=== PATIENT | male | born 1965 | race Caucasian/White ===

== ENCOUNTER → 2024-11-26 13:01 | Outpatient (BNVA) | payer OTHER, SELFPAY | PROVIDERS: PCP Physician Assistant; Visit Provider Physician Assistant | DX: I10 Essential (primary) hypertension (principal); E66.9 Obesity, unspecified; F41.1 Generalized anxiety disorder; R41.840 Attention and concentration deficit; F33.0 Major depressive disorder, recurrent, mild; R35.1 Nocturia; E66.01 Morbid (severe) obesity due to excess calories; M54.41 Lumbago with sciatica, right side; M54.42 Lumbago with sciatica, left side; G89.29 Other chronic pain; Z86.718 Personal history of other venous thrombosis and embolism; Z87.891 Personal history of nicotine dependence; Z68.35 Body mass index [BMI] 35.0-35.9, adult | CPT/HCPCS: 96127; 99202 ==

== ENCOUNTER 2025-01-08 10:00 | Outpatient (REF) | payer OTHER, SELFPAY ==
[2025-01-08 11:27] LABS: MANUAL DIFF FLAG NO
[2025-01-08 11:44] LABS: Basophils Absolute Auto 0.1 X10*3/uL (0.0-0.2); Basophils Percent Auto 0.9 % (0-2); Eosinophils Absolute Auto 0.3 X10*3/uL (0.0-0.4); Eosinophils Percent Auto 4.1 % (0-4); Hematocrit 43.5 % (42.0-52.0); Hemoglobin 14.5 g/dl (14.0-18.0); Imm Gran Abs Auto 0.03 X10*3/uL (0.00-0.03); Imm Gran Pct Auto 0.4 % (0.0-0.4); Lymphocytes Absolute Auto 2.8 X10*3/uL (1.2-4.9); Lymphocytes Percent Auto 35.7 % (20-40); Mean Corpuscular HGB Conc 33.3 g/dl (31.0-36.0); Mean Corpuscular Hemoglobin 28.3 pg (27.0-33.0); Mean Corpuscular Volume 84.8 fL (80.0-98.0); Mean Platelet Volume 9.9 fL (9.4-12.4); Monocytes Absolute Auto 0.6 X10*3/uL (0.1-1.2); Monocytes Percent Auto 7.4 % (2-11); Neutrophils Absolute Auto 4.1 x10*3/uL (2.0-8.3); Neutrophils Percent Auto 51.5 % (45-73); Platelet Count 298 X10*3/uL (160-400); Red Blood Count 5.13 X10*6/uL (4.60-5.80); Red Cell Distribution Width 14.3 % (11.0-16.0); White Blood Count 7.9 X10*3/uL (4.8-10.8)
[2025-01-08 11:46] LABS: Estimated Average Glucose 120 mg/dL; Hemoglobin A1c % 5.8 % (<6.0)
--- OUTSIDE RECORDS SUMMARY | 2025-01-08 12:22 | XMS_ITS | Patient Health Record ---
Author Organization [facility] Address [address] [address] Care Team Providers Care Sales Service Professional Name Role Phone Mckenzie Luz Primary Care Provider Unavailabl e BEN MORGAN Unavailable [phone] Allergies No Known Allergies Reason For Referral Reason B/L feet pain Diagnosis 1 Right foot pain (M79 .671) Diagnosis 2 Left foot pain (M79. 672) Diagnosis 3 Gastrocnemius equinu s of right lower extremity (M62.461) Diagnosis 4 Gastrocnemius equinu s of left lower extremity (M62.462) Referring Provider First Name Mckenzie Referring Provider Last Name Natty Referred Organization [facility] Referred Provider BEN MORGAN Referred Address [address] [place] [phone], Referred Provider Specialty Podiatry Referral Priority Routine Reason B/L feet pain Diagnosis 1 Left foot pain (M79. 672) Diagnosis 2 Right foot pain (M79 .671) Referring Provider First Name Mckenzie Referring Provider Last Name Natty Referred Organization [facility] Referred Provider BEN MORGAN Referred Address [address] [place] [phone], Referred Provider Specialty Podiatry Referral Priority Routine Medications Medication SIG (Take, Route, Frequency, Duration) Notes Start Date End Date Status traMADol HCl 100 MG 1 tablet as needed Orally every 6 hrs Active Tamsulosin HCl 0.4 MG 1 capsule Orally O nce a day Active Wegovy 0.25 MG/0.5ML 0.5 mL Subcutaneous Active Cymbalta 60 MG 1 capsule Orally Onc e a day Active Azithromycin 250 MG as directed Orally Not-Taking Lisinopril-hydroCHLOROth iazide 20-12.5 MG 1 tablet Orally Once a day Active Doxycycline Hyclate 100 MG 1 capsule Orally Once a day Not-Taking Percocet 5-325 MG 1 tablet as needed Orally every 6 hrs Not-Taking Problems Problem Type SNOMED Code ICD Code Onset Dates Problem Status W/U Status Risk Notes Problem [id number] Gastrocnemius equinus of right lower extremity (M62.461) Active confirmed Problem [id number] Gastrocnemius equinus of left lower extremity (M62.462) Active confirmed Vital Signs Temperature 97.2 degrees Fahrenheit 07/07/2024 Blood pressure diastolic 70 mm Hg 07/07/2024 Height 5ft 6.5in in 07/07/2024 Blood pressure systolic 120 mm Hg 07/07/2024 Weight 213.7 lbs 07/07/2024 BMI 33.97 kg/m2 07/07/2024 Encounters Encounter Location Date Provider Diagnosis [facility] [address] [facility] [address] [place] [address] 07/07/2024 BEN MORGAN Left foot pain M79.6 72 ; Right foot pain M79.671 ; Gastrocnemius equinus of left lower extremity M62.462 and Gastrocnemius equinus of right lower extremity M62.461 Assessments Encounter Date Diagnosis (ICD Code) Assessment Notes Treatment Notes Treatment Clinical Notes Section Notes 07/07/2024 Right foot pain (ICD-10 - M79.671) 07/07/2024 Left foot pain (ICD-10 - M79.672) Patient examined and evaluated. Past medical history reviewed. He has had chronic bilateral ankle and foot pain. Bilateral weightbearing radiographs taken of the left and right foot. No significant degenerative changes or acute bony pathology. I discussed with him that the chronic pain is a combination of his job requirement of standing on hard surfaces and lower extremity tightness. I advised stiffer soled shoe gear and gave him recs on inserts. I also suggested calf stretching twice daily. I advised PT could be beneficial to help with the tightness, but he wished to avoid this for now. He will start stretching on his own and let me know in the future if he wants to do PT. He can otherwise follow back as needed. 07/07/2024 Gastrocnemius equinus of left lower extremity (ICD-10 - M62.462) 07/07/2024 Gastrocnemius equinus of right lower extremity (ICD-10 - M62.461) Plan Of Treatment No Information Insurance Providers Payer Name Payer Address Payer Phone Subscriber Number Group Number Insured Name Patient Relationship to Insured Coverage Start Date Coverage End Date [facility] [address] [address] [place] [address] [phone] [id number] Marco Alcantara Self - patient is the insured Medical (General) History Medical History History ICD Code Hyperlipidemia hypertension osteoarthritis of right knee Covid-19 2019 Benign Prostate Hyperplasia Obesity Anxiety Chronic pain Surgical History Surgery Date(Month/Year) colonoscopy 2016 ACL repair Partial knee surgery 2020
--- OUTSIDE RECORDS SUMMARY | 2025-01-08 12:22 | XMS_ITS | Encounter Summary ---
Author Organization [facility] Address [address] [place] [address] Care Team Providers Care Medical Billing Manager Name Role Phone Pcp, No Primary Care Provider UnavailAnel Liu LCSW Unavailable [phone] Marco Conroy MD Unavailable [phone] Marco Correa MD Unavailable [phone] Encounter Details Date Type Department Care Team (Late st Contact Info) Description 09/08/2021 Erroneous Encounter [facility] [address] [place] [address] Jaun Asif Jr., MD [address] [place], [place] [id number] Social History Tobacco Use Types Packs/Day Years Used Date Smoking Tobacco: Never Assessed Sex and Gender Information Value Date Recorded Sex Assigned at Not on file Gender Identity Not on file Sexual Orientation Not on file documented as of this encounter Plan of Treatment Not on file documented as of this encounter Goals Goal Patient Goal Type Associated Problems Recent Progress Patient-Stated? Author Reduce ADHD behavioral interference in daily life. Care Plan PTDO-Attention- Deficit/Hyperac tivity Disorder (ADHD) No Anel Orozco LCSW [phone] Take prescribed medications responsibly at times ordered by the physician. Care Plan PTDO-Attention- Deficit/Hyperac tivity Disorder (ADHD) No Anel Orozco LCSW improve lack of focus, feeling like I don't fit in and being uncomfortable, decrease anxiety Care Plan PTDO-Attention- Deficit/Hyperac tivity Disorder (ADHD) No Anel Orozco LCSW MARS GOAL 11 - I can make changes in my life Care Plan PTDO-Attention- Deficit/Hyperac tivity Disorder (ADHD) No Anel Orozco LCSW Note: Pt. will report at least a 1 point increase on the MARS-12 outcome measure item (#11) I can make changes in my life even though I have a behavioral health issue on the next administration of the measure. Pt. will identify at least one change that they can try and make in their life and report progress on that change in future appointments. Frequency Duration Modality documented as of this encounter Visit Diagnoses Not on filedocumented in this encounter Additional Health Concerns Active Problems Noted Date Diagnosed Date QWCA-Angwcincf-Lvgkfdn/Hyperactivity Disorder (A DHD) 03/10/2021 documented as of this encounter Care Teams Medical Billing Manager Relationship Specialty Start Date End Date Pcp, Padmini PCP - General General Medicine 02/11/21 Anel Orozco LCSW [address] [place] [address] Correctional Sergeant Social Work 03/10/21 Marco Conroy MD [address] [place] [address] Psychiatry, General 03/15/21 Marco Correa MD [address] [place] [address] Psychiatry, General 04/22/21 documented as of this encounter
--- OUTSIDE RECORDS SUMMARY | 2025-01-08 12:23 | XMS_ITS ---
Author Organization [facility] Address [address] [address] Care Team Providers Care Construction Stonemason Name Role Phone Mckenzie Luz Primary Care Provider YUE Ding Unavailable [phone] Allergies No Known Allergies REASON FOR VISIT b/l Ankle and foot pain, Questioning if he has a sprain [...] as needed Orally every 6 hrs Not-Taking traMADol HCl 100 MG 1 tablet as needed Orally every 6 hrs Active Tamsulosin HCl 0.4 MG 1 capsule Orally O nce a day Active Wegovy 0.25 MG/0.5ML 0.5 mL Subcutaneous Active Vital Signs Temperature 97.2 degrees Fahrenheit 07/07/20 24 Blood pressure systolic 120 mm Hg 07/07/20 24 Blood pressure diastolic 70 mm Hg 024 Height 5ft 6.5in in 07/07/2024 Weight 213.7 lbs 07/07/2024 BMI 33.97 kg/m2 07/07/2024 Encounters Encounter Location Date Provider Diagnosis [facility] [address] [address] 07/07/2024 YUE MORGAN Left foot pain M79.6 72 ; Right foot pain M79.671 ; Gastrocnemius equinus of left lower extremity M62.462 and Gastrocnemius equinus of right lower extremity M62.461 Assessments Encounter Date Diagnosis (ICD Code) Assessment Notes Treatment Notes Treatment Clinical Notes Section Notes 07/07/2024 Left foot pain (ICD-10 - M79.672) [...] can otherwise follow back as needed. 07/07/2024 Right foot pain (ICD-10 - M79.671) 07/07/2024 Gastrocnemius equinus of left lower extremity (ICD-10 - M62.462) 07/07/2024 Gastrocnemius equinus of right lower extremity (ICD-10 - M62.461) Plan Of Treatment Treatment Notes Assessment Notes Left foot pain Patient examined and evaluated. Past medical history [...] He can otherwise follow back as needed. Progress Notes * Marco SCHULZDOB:1965 (59 yo M)Acc No.[id number]:07/07/2024 Consult note Patient:?Marco SCHULZ Provider:?Yue Ervin DPM :1965???Age:59 Y???Sex:Male Anderson e:07/07/2024 Phone: Address:[address] [place] [address], [phone] Pcp:Mckenzie Luz Subjective: * Chief Complaints: * ???b/l Ankle and foot pain, Questioning if he has a sprain on the left foot * HPI: ???Foot & Ankle:? Mr. Schulz is a 59 year old male who presents for a consultation. He states he has foot and ankle pain at the end of his shifts working. This is equal on both sides and has been bothering him for over 4 years. 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 He states the bottom of the heels get sore and around his ankles. He states he recently started wearing compression sleeves and this has been helpful..He also takes tramadol for chronic pain and this helps. He denies any past trauma to either foot or ankle. He denies any numbness, tingling or burning sensations. He just recently started Wgovy for weightloss and is hoping this might also help with his chronic pain. * ROS:?General/Constitutional:?Denies?Chills.?Denies?Fatigue.?Denies?Fever.?Denies?Headache.?Allergy/Immunology:?Denies?Hives.?Denies?Itching.?Denies?Rash.?Endocrine:?Denies?Excessive sweating.?Denies?Excessive thirst.?Denies?Frequent urination.?Respiratory:?Denies?Cough.?Denies?Shortness of breath,?denies.?Denies?Wheezing.?Cardiovascular:?Denies?Chest pain.?Denies?Claudication.?Denies?Cyanosis.?Gastrointestinal:?Denies?Abdominal pain.?Denies?Constipation.?Denies?Diarrhea.?Hematology:?Denies?Bleeding problems,?denies.?Denies?Easy bruising,?denies.?Denies?Swollen glands.?Musculoskeletal:?Patient complaining of?ankle and foot pain bilaterally.?.?Denies?History of Gout.?Denies?Joint stiffness.?Admits?Leg cramps.?Peripheral Vascular:?Denies?Blanching of skin.?Blood clots in legs?Denies.?Denies?Cold extremities.?Skin:?Denies?Masses.?Denies?Nail changes.?Denies?Skin lesion(s).?Neurologic:?Denies?Paralysis.?Denies?Tingling/Numbness.?Denies?Tremor.?Psychiatric:?Denies?Auditory/visual hallucinations.?Denies?Delusions.?Denies?Suicidal thoughts.? * Medical History:? * Surgical History:?colonoscop y 2015ACL repair Partial knee surgery 2019 * Hospitalization/Major Diagno stic Procedure:?Denies Past Hospitalization * Family History:?Non-Contribu tory.? * Social History:?Tobacco- No Alcohol- No, former use 2 COVID-19 Vaccines Works in [employer]. * Medications:?TakingWegovy 0. 25 MG/0.5ML Solution Auto-injector 0.5 mL Subcutaneous traMADol HCl 100 MG Tablet 1 tablet as needed Orally every 6 hrs Tamsulosin HCl 0.4 MG Capsule 1 capsule Orally Once a day Lisinopril-hydroCHLOROthiazide 20-12.5 MG Tablet 1 tablet Orally Once a day Cymbalta 60 MG Capsule Delayed Release Particles 1 capsule Orally Once a day Taking Wegovy 0.25 MG/0.5ML Solution Auto-injector 0.5 mL Subcutaneous Taking traMADol HCl 100 MG Tablet 1 tablet as needed Orally every 6 hrs Taking Tamsulosin HCl 0.4 MG Capsule 1 capsule Orally Once a day Taking Lisinopril-hydroCHLOROthiazide 20-12.5 MG Tablet 1 tablet Orally Once a day Taking Cymbalta 60 MG Capsule Delayed Release Particles 1 capsule Orally Once a day Not-TakingDoxycycline Hyclate 100 MG Capsule 1 capsule Orally Once a day Azithromycin 250 MG Tablet as directed Orally Percocet 5-325 MG Tablet 1 tablet as needed Orally every 6 hrs Medication List reviewed and reconciled with the patientNot-Taking Doxycycline Hyclate 100 MG Capsule 1 capsule Orally Once a day Not-Taking Azithromycin 250 MG Tablet as directed Orally Not-Taking Percocet 5-325 MG Tablet 1 tablet as needed Orally every 6 hrs Medication List reviewed and reconciled with the patient * Allergies:?N.K.D.A.no[Allerg ies Verified] Objective: * Vitals:?Wt:213.7lbs, Ht: 5ft 6.5in, BMI:33.97Index, BP:120/70mm Hg, Temp:97.2F, Ht-cm: 168.91, Wt-k.93 kg. * Examination: ???General Examination: ???This is a middle aged male. Alert and oriented today and in no acute distress. Patient comes in ambulating in sneakers without using any assistive devices. Breathing is regular and unlabored while sitting. Affect is pleasant and cooperative. No unusual anxiety or depression noted. Hearing intact to spoken word. No evidence of visual impairment that would impact self care or ambulation. Patient has palpable dorsalis pedis and posterior tibial pulse bilaterally. No varicosities visualized. Capillary refill is less than 3 seconds to all digits bilaterally. Light touch sensation is symmetrical to all lower extremity dermatomes. Babinski is downgoing. Skin has normal turgor and texture. Calluses to the plantar forefoot bilaterally. No edema or erythema to either foot or ankle. Subtalar and ankle joint range of motion are unrestricted. 5/5 strength for anterior, posterior, and lateral lower extremity muscle groups on the left and right. Significant gastrocnemius equinus present bilaterally. Therapeutic Interventions: Assessment: * Assessment: 1.?Left foot pain - M79.672 (Primary)?2.?Right foot pain - M79.671?3.?Gastrocnemius equinus of left lower extremity - M62.462?4.?Gastrocnemius equinus of right lower extremity - M62.461? Plan: * Treatment: * Procedures:?RIGHT AND LEFT FOOT RADIOGRAPHS 07/07/2024 3 weight bearing views of each foot (AP, LAT, LO PROJECTION/MO VIEW) Taken in the office and read by the physician. Osseous mineralization is age appropriate. There are no acute fractures or dislocations. No abnormal bone lesions or tumors. Joint spaces appear preserved throughout. There is a small accessory navicular present bilaterally. Small calcification at the posterior calcaneus bilaterally. Plantar calcaneal enthesophyte present bilaterally. ? * Procedure Codes:?35179 X-RAY EXAM OF FOOT 3 Views, Modifiers: [place] 34599 X-RAY EXAM OF FOOT 3 Views, Modifiers: RT * Billing Information: * Visit Code:? 40687 Office Visit, New Pt., Level 3. * Procedure Codes:? 05798 X-RAY EXAM OF FOOT 3 Views. Modifiers: [place] 05809 X-RAY EXAM OF FOOT 3 Views. Modifiers: RT * Sign off status: Completed true * Provider:?Yue Ervin DPM Date:?07/07 Generated for Yocasta burkett/Greta/Gaylaitting on:?01/08/2025 12:23 PM EDT History and Physical Notes * Examination Category Sub-Category Detail Notes Category Not es General Examination This is a middle aged male. Alert and oriented today and in no acute distress. Patient comes in ambulating in sneakers without using any assistive devices. Breathing is regular and unlabored while sitting. Affect is pleasant and cooperative. No unusual anxiety or depression noted. Hearing intact to spoken word. No evidence of visual impairment that would impact self care or ambulation. Patient has palpable dorsalis pedis and posterior tibial pulse bilaterally. No varicosities visualized. Capillary refill is less than 3 seconds to all digits bilaterally. Light touch sensation is symmetrical to all lower extremity dermatomes. Babinski is downgoing. Skin has normal turgor and texture. Calluses to the plantar forefoot bilaterally. No edema or erythema to either foot or ankle. Subtalar and ankle joint range of motion are unrestricted. 5/5 strength for anterior, posterior, and lateral lower extremity muscle groups on the left and right. Significant gastrocnemius equinus present bilaterally.
--- OUTSIDE RECORDS SUMMARY | 2025-01-08 12:23 | XMS_ITS ---
Author Organization [facility] Address [address] [address] Care Team Providers Care Harvesting Contractor Name Role Phone Mckenzie Lzu Primary Care Provider UnavailYUE Shanks Unavailable [phone] Allergies No Known Allergies REASON FOR VISIT [...] Active Encounters Encounter Location Date Provider Diagnosis [facility] [address] [address] 07/03/2024 YUE MORGAN Plan Of Treatment No Information Progress Notes * Marco SCHULZDOB:1965 (59 yo M)Acc No.[id number]:07/03/2024 Consult note Patient:?Marco SCHULZ Provider:?Yue Ervin DPM :1965???Age:59 Y???Sex:Male Anderson e:07/03/2024 Phone: Address:[address] [place] [phone] Pcp:Mckenzie Luz Subjective: * Chief Complaints: * ???1. b/l Ankle and feet dennis n, Questioning if he has a sprain on the left foot. * Medical History:?Hyperlipide juanjo, Hypertension, Osteoarthritis of right knee. * Surgical History:?colonoscop y 2015, ACL repair . * Family History:? Hypertension. * Social History:?Tobacco- No Alcohol- No. * Medications:?Taking Wegovy 0 .25 MG/0.5ML Solution Auto-injector 0.5 mL Subcutaneous , Taking traMADol HCl 100 MG Tablet 1 tablet as needed Orally every 6 hrs , Taking Tamsulosin HCl 0.4 MG Capsule 1 capsule Orally Once a day , Taking Percocet 5- 325 MG Tablet 1 tablet as needed Orally every 6 hrs , Taking Lisinopril- hydroCHLOROthiazide 20-12.5 MG Tablet 1 tablet Orally Once a day , Taking Doxycycline Hyclate 100 MG Capsule 1 capsule Orally Once a day , Taking Cymbalta 60 MG Capsule Delayed Release Particles 1 capsule Orally Once a day , Taking Azithromycin 250 MG Tablet as directed Orally * Allergies:?N.K.D.A. Objective: * Vitals:? Therapeutic Interventions: Assessment: Plan: * Treatment: * Billing Information: * Visit Code:? * Procedure Codes:? * Electronic signature of Krzysztof ORTIZPIliana on 01/08/2025 at 12:22 PM EDT Sign off status: Pending * Provider:?Yue Ervin DPMayo Date:?07/03 Generated for Yocasta burkett/Greta/Ran on:?01/08/2025 12:22 PM EDT
--- OUTSIDE RECORDS SUMMARY | 2025-01-08 12:23 | XMS_ITS ---
Care Plan Created on: January 08, 2025 Marco Alcantara : 1965 Sex: Male Author Organization [facility] Address [address] [place] [address] Care Team Providers Care Business Unit Director Name Role Phone Pcp, No Primary Care Provider UnavailAnel Liu LCSW Unavailable [phone] Marco Conroy MD Unavailable [phone] Marco Correa MD Unavailable [phone] Active Problems Problem Noted Date Diagnosed Date Attention deficit hyperactiv ity disorder (ADHD), predominantly inattentive type 03/10/2021 Additional Health Concerns Active Problems Noted Date Diagnosed Date GZBO-Nujjzpeek-Fpmzhdr/Hyperactivity Disorder (A DHD) 03/10/2021 Goals Goal Patient Goal Type Associated Problems [...] change in future appointments. Frequency Duration Modality Interventions Intervention Entry Date Outcome Monitor and evaluate client's medication compliance and the effectiveness of the medications on level of functioning. 03/10/2021 Note:Monitor and evaluate client's medication compliance and the effectiveness of the medications on level of functioning. Frequency: Monthly Duration:ongoing Modality: Medication management Notes: Related Goals and Interventions Goal Associated Intervent ions [phone] Take prescribed medications responsibly at times ordered by the physician. Monitor and evaluate client's medication compliance and the effectiveness of the medications on level of functioning.
--- OUTSIDE RECORDS SUMMARY | 2025-01-08 12:23 | XMS_ITS | Clinical Summary ---
Author Organization [facility] Address [address] [place] [address] Care Team Providers Care Slab Lifting Supervisor Name Role Phone Pcp, No Primary Care Provider UnavailAnel Liu LCSW Unavailable [phone] Marco Conroy MD Unavailable [phone] Marco Correa MD Unavailable [phone] Allergies No known active allergies Medications No known medications Active Problems Problem Noted Date Diagnosed Date Attention deficit hyperactiv ity disorder (ADHD), predominantly inattentive type 03/10/2021 Family History Medical History Relation Name Comments ADD / ADHD Father Relation Name Status Comments Father Social History Tobacco Use Types Packs/Day Years Used Date Smoking Tobacco: Never Assessed Sex and Gender Information Value Date Recorded Sex Assigned at Not on file Gender Identity Not on file Sexual Orientation Not on file Plan of Treatment Health Maintenance Due Date Last Done Comments Hepatitis C Virus Screening 1965 HIV Screening 1978 DTaP/Tdap/Td Vaccines (1 - Tdap) 1984 Hepatitis B Vaccines (1 of 3 - 19+ 3-dose series) 1984 Colonoscopy 2010 Pneumococcal Vaccines 50+ (1 of 1 - PCV) 2015 Zoster (Shingles) Vaccine (1 of 2) 2015 Influenza Vaccine 05/29/2024 COVID-19 Vaccine ( - 2023-2 5 season) 2024 11/20/2021, 03/04/2021, 02/11/2021 Pneumococcal Vaccine: Pediatric (0-5 Years) and At-Risk Patients (6 to 49 Years) Aged Out No longer eligible b ased on patient's age to complete this topic Goals Goal Patient Goal Type Associated Problems [...] change in future appointments. Frequency Duration Modality Additional Health Concerns Active Problems Noted Date Diagnosed Date NJWO-Znbketkmv-Zvuptli/Hyperactivity Disorder (A DHD) 03/10/2021 Care Teams Slab Lifting Supervisor Relationship Specialty Start Date End Date Pcp, No PCP - General General Medicine 02/11/21 Anel Orozco LCSW [address] [place] [address] Ornamental Metal Erector Apprentice Social Work 03/10/21 Marco Conroy MD [address] [facility], [place] [address] Psychiatry, General 03/15/21 Marco Correa MD [address] [place], [place] [address] Psychiatry, General 04/22/21
[2025-01-08 12:25] LABS: Alanine Aminotransferase 28 U/L (0-40); Albumin Level 4.2 g/dL (3.5-5.0); Alkaline Phosphatase 65 U/L (39-117); Anion Gap 13 (12-20); Aspartate Amino Transferase 20 U/L (5-37); Bilirubin Total 0.5 mg/dL (0.0-1.0); Blood Urea Nitrogen 19 mg/dL (9-16); Calcium 9.1 mg/dL (8.4-10.2); Carbon Dioxide 23 mmol/L (22-29); Chloride 109 mmol/L (96-108); Cholesterol 230 mg/dL (<200); Estimated Glomerular Filt Rate > 60; Glucose Fasting 90 mg/dL (60-99); HDL Cholesterol 51 mg/dL (>40); LDL Cholesterol Calculated 154 mg/dL (<100); Magnesium 2.3 mg/dL (1.6-2.6); Potassium 3.6 mmol/L (3.3-5.1); Sodium 141 mmol/L (135-145); TSH reflex Free T4 1.38 uIU/mL (0.32-4.0); Total Protein 7.3 g/dL (6.5-8.0); Triglycerides 129 mg/dL (<150)
[2025-01-08 12:37] LABS: Folate 10.3 ng/mL (> or = 4.0); Prostate Specific Antigen Scr 3.33 ng/mL (<0.05-4.0); Vitamin B12 736 pg/mL (200-900)
[2025-01-09 13:23] LABS: Lyme Abs Screen <0.90 index
== END 2025-01-08 10:01 | disposition home or self-care (01) ==
LOC: HO.WFDLDS 10:00
PROVIDERS: Visit Provider Physician Assistant
DX: F41.1 Generalized anxiety disorder (principal); R41.840 Attention and concentration deficit; F33.0 Major depressive disorder, recurrent, mild; I10 Essential (primary) hypertension; R35.1 Nocturia; I82.401 Acute embolism and thrombosis of unspecified deep veins of right lower extremity; R73.01 Impaired fasting glucose; Z01.89 Encounter for other specified special examinations
CPT/HCPCS: 36415; 80053; 80061; 82607; 82746; 83036; 83735; 84153; 84443; 85025; 86617; 86618

== ENCOUNTER 2025-01-15 15:13 | Outpatient (AMB) | payer OTHER, SELFPAY ==
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
[2025-01-15 15:26] VITALS: BP 110/74; PULSE 78; RESP 14; O2SAT 98; BMI 37.6
== END 2025-01-15 16:04 | disposition home or self-care (01) ==
LOC: HO.HMCFM 15:13
PROVIDERS: PCP Physician Assistant; Visit Provider Physician Assistant
DX: I10 Essential (primary) hypertension (principal); F33.0 Major depressive disorder, recurrent, mild; E66.01 Morbid (severe) obesity due to excess calories; Z68.35 Body mass index [BMI] 35.0-35.9, adult; R73.03 Prediabetes; M54.42 Lumbago with sciatica, left side; M54.41 Lumbago with sciatica, right side; G89.29 Other chronic pain; E78.5 Hyperlipidemia, unspecified

== ENCOUNTER → 2025-01-15 15:13 | Outpatient (BNVA) | payer OTHER, SELFPAY | PROVIDERS: PCP Physician Assistant; Visit Provider Physician Assistant | DX: I10 Essential (primary) hypertension (principal); R73.03 Prediabetes; E66.01 Morbid (severe) obesity due to excess calories; Z68.35 Body mass index [BMI] 35.0-35.9, adult; F33.0 Major depressive disorder, recurrent, mild; M54.41 Lumbago with sciatica, right side; M54.42 Lumbago with sciatica, left side; G89.29 Other chronic pain; E78.5 Hyperlipidemia, unspecified; Z71.3 Dietary counseling and surveillance | CPT/HCPCS: 99212 ==

== ENCOUNTER 2025-03-04 16:11 | Outpatient (AMB) | payer OTHER, SELFPAY ==
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
--- OUTSIDE RECORDS SUMMARY | 2025-03-04 16:33 | XMS_ITS ---
Author Organization [facility] Address [address] [address] Care Team Providers Care Newspaper Library Manager Name Role Phone Mckenzie Luz Primary Care Provider UnavailYUE Shanks Unavailable [phone] Allergies No Known Allergies REASON FOR VISIT [...] Active Encounters Encounter Location Date Provider Diagnosis [facility] [address] [address] 07/03/2024 YUE MORGAN Plan Of Treatment No Information Progress Notes * Marco SCHULZDOB:1965 (59 yo M)Acc No.[id number]:07/03/2024 Consult note Patient:?Marco SCHULZ Provider:?Yue Ervin DPM :1965???Age:59 Y???Sex:Male Anderson e:07/03/2024 Phone: Address:[address] [place] [id number] Pcp:Mckenzie Luz Subjective: * Chief Complaints: * [...] * Electronic signature of Krzysztof ORTIZPIliana on 03/04/2025 at 04:33 PM EDT Sign off status: Pending * Provider:?Yue Ervin DPMayo Date:?07/03 Generated for Yocasta burkett/Greta/Ran on:?03/04/2025 04:33 PM EDT
--- OUTSIDE RECORDS SUMMARY | 2025-03-04 16:33 | XMS_ITS | Encounter Summary ---
Author Organization [facility] Address [address] [place] [address] Care Team Providers Care Administrative Fellow Name Role Phone Pcp, No Primary Care Provider Unavailannie e Anel Orozco LCSW Unavailable [phone] Marco Conroy MD Unavailable [phone] Marco Correa MD Unavailable [phone] Encounter Details Date Type Department Care Team (Late st Contact Info) Description 09/08/2021 Erroneous Encounter [facility] CON[facility] DEPT [address] [place] [address] Jaun Asif Jr., MD [address] [place] [address] Social History Tobacco Use Types Packs/Day Years Used Date Smoking Tobacco: Never Assessed Sex and Gender Information Value Date Recorded Sex Assigned at Not on file Legal Sex Male 11:32 PM EDT Gender Identity Not on file Sexual Orientation [...] Concerns Active Problems Noted Date Diagnosed Date LUNQ-Lqhdrlylv-Jvqhpkc/Hyperactivity Disorder (A DHD) 03/10/2021 documented as of this encounter Care Teams Administrative Fellow Relationship Specialty Start Date End Date Pcp, No PCP - General General Medicine 02/11/21 Anel Orozco LCSW [address] [place] [address] Karate Teacher Social Work 03/10/21 Marco Conroy MD [address] [place] [address] Psychiatry, General 03/15/21 Marco Correa MD [address] [place] [address] Psychiatry, General 04/22/21 documented as of this encounter
--- OUTSIDE RECORDS SUMMARY | 2025-03-04 16:33 | XMS_ITS | Patient Health Record ---
Author Organization [facility] Address [address] [address] Care Team Providers Care Thrill Performer Name Role Phone Mckenzie Luz Primary Care Provider Unavailabl e BEN MORGAN Unavailable [phone] Allergies No Known Allergies Reason For Referral Reason B/L feet pain Diagnosis 1 Right foot pain (M79 .671) Diagnosis 2 Left foot pain (M79. 672) Diagnosis 3 Gastrocnemius equinu s of right lower extremity (M62.461) Diagnosis 4 Gastrocnemius equinu s of left lower extremity (M62.462) Referring Provider First Name Mckenzie Referring Provider Last Name Natty Referred Organization [facility] Referred Provider BEN MORGAN Referred Address [address] [place] [phone], Referred Provider Specialty Podiatry Referral Priority Routine Reason B/L feet pain Diagnosis 1 Left foot pain (M79. 672) Diagnosis 2 Right foot pain (M79 .671) Referring Provider First Name Mckenzie Referring Provider Last Name Natty Referred Organization [facility] Referred Provider BEN MORGAN Referred Address [address] [place] [phone], Referred Provider Specialty Podiatry Referral Priority Routine [...] Problem Status W/U Status Risk Notes Problem [id number] Gastrocnemius equinus of right lower extremity (M62.461) Active confirmed Problem [id number] Gastrocnemius equinus of left lower extremity (M62.462) Active confirmed Vital Signs Temperature 97.2 degrees Fahrenheit 07/07/2024 Blood pressure diastolic 70 mm Hg 07/07/2024 Height 5ft 6.5in in 07/07/2024 Blood pressure systolic 120 mm Hg 07/07/2024 Weight 213.7 lbs 07/07/2024 BMI 33.97 kg/m2 07/07/2024 Encounters Encounter Location Date Provider Diagnosis [facility] [address] [facility] [address] [place] [address] 07/07/2024 BEN MORGAN Left foot pain M79.6 [...] Insured Coverage Start Date Coverage End Date [facility] [address] [address] [place] [address] [id number] Marco Alcantara Self - patient is the insured Medical (General) History Medical History History ICD Code Hyperlipidemia hypertension osteoarthritis of right knee Covid-19 2019 Benign Prostate Hyperplasia Obesity Anxiety Chronic pain Surgical History Surgery Date(Month/Year) colonoscopy 2016 ACL repair Partial knee surgery 2020
--- OUTSIDE RECORDS SUMMARY | 2025-03-04 16:33 | XMS_ITS | Clinical Summary ---
Author Organization [facility] Address [address] [place] [address] Care Team Providers Care Instrument Engineer Name Role Phone Pcp, No Primary Care Provider UnavailAnel Liu LCSW Unavailable [phone] Marco Conroy MD Unavailable [phone] Marco Correa MD Unavailable [phone] Allergies No known active allergies Medications * This document contains information received from the source organization and may not represent a complete record from that organization. No known medications Active Problems Problem Noted [...] Zoster (Shingles) Vaccine (1 of 2) 2015 COVID-19 Vaccine ( - season) 2024 11/20/2021, 03/04/2021, 02/11/2021 Influenza Vaccine 05/29/2025 Goals Goal Patient Goal Type Associated Problems [...] Concerns Active Problems Noted Date Diagnosed Date BEZC-Ymbyonglb-Zvzbeet/Hyperactivity Disorder (A DHD) 03/10/2021 Insurance [facility] Care Teams Instrument Engineer Relationship Specialty Start Date End Date Pcp, No PCP - General General Medicine 02/11/21 Anel Orozco LCSW [address] [place] [address] Retort Cooler Social Work 03/10/21 Marco Conroy MD [address] [place] [address] Psychiatry, General 03/15/21 Marco Correa MD [address] [place] [address] Psychiatry, General 04/22/21
--- OUTSIDE RECORDS SUMMARY | 2025-03-04 16:33 | XMS_ITS ---
Care Plan Created on: March 04, 2025 Marco Alcantara : 1965 Sex: Male Author Organization [facility] Address [address] [place] [address] Care Team Providers Care Core Feeder Name Role Phone Pcp, No Primary Care Provider UnavailAnel Liu LCSW Unavailable [phone] Marco Conroy MD Unavailable [phone] Marco Correa MD Unavailable [phone] Active Problems * This document contains information received from the source organization and may not represent a complete record from that organization. Problem Noted Date Diagnosed Date Attention deficit hyperactiv ity disorder (ADHD), predominantly inattentive type 03/10/2021 Additional Health Concerns Active Problems Noted Date Diagnosed Date YRYX-Afcpkaeru-Sdwtgcr/Hyperactivity Disorder (A DHD) 03/10/2021 Goals Goal Patient [...] in future appointments. Frequency Duration Modality Interventions Care Plan Interventions Intervention Entry Date Outcome Monitor and [...]
--- OUTSIDE RECORDS SUMMARY | 2025-03-04 16:33 | XMS_ITS ---
Author Organization [facility] Address [address] [address] Care Team Providers Care Tongue Trimmer Name Role Phone Dena Luzanne Primary Care Provider YUE Ding Unavailable [phone] Allergies No Known Allergies REASON FOR VISIT [...] 07/07/2024 Encounters Encounter Location Date Provider Diagnosis [facility] [address] [address] 07/07/2024 YUE MORGAN Left foot pain M79.6 [...] Notes * Marco SCHULZDOB:1965 (59 yo M)Acc No.[id number]:07/07/2024 Consult note Patient:?Marco SCHULZ Provider:?Yue Ervin DPM :1965???Age:59 Y???Sex:Male Anderson e:07/07/2024 Phone: Address:[address] [place] [address], [phone] Pcp:Mckenzie Luz Subjective: * Chief Complaints: * [...] former use 2 COVID-19 Vaccines Works in [employer]. * Medications:?TakingWegovy 0. 25 MG/0.5ML Solution Auto-injector [...] calcaneal enthesophyte present bilaterally. ? * Procedure Codes:?82450 X-RAY EXAM OF FOOT 3 Views, Modifiers: [place] 07971 X-RAY EXAM OF FOOT 3 Views, Modifiers: RT * Billing Information: * Visit Code:? 13486 Office Visit, New Pt., Level 3. * Procedure Codes:? 43238 X-RAY EXAM OF FOOT 3 Views. Modifiers: LT 12958 X-RAY EXAM OF FOOT 3 Views. Modifiers: RT * Sign off status: Completed true * Provider:?Yue Ervin DPM Date:?07/07 Generated for Yocasta burkett/Greta/Gaylaitting on:?03/04/2025 04:33 PM EDT History and Physical Notes * [...]
== END 2025-03-10 13:39 | disposition home or self-care (01) ==
LOC: HO.HMCFM 16:11
PROVIDERS: PCP Physician Assistant; Visit Provider Physician Assistant
DX: M54.42 Lumbago with sciatica, left side (principal); E66.01 Morbid (severe) obesity due to excess calories; Z68.35 Body mass index [BMI] 35.0-35.9, adult; M54.41 Lumbago with sciatica, right side; G89.29 Other chronic pain; R41.840 Attention and concentration deficit

== ENCOUNTER → 2025-03-04 16:11 | Outpatient (BNVA) | payer OTHER, SELFPAY | PROVIDERS: PCP Physician Assistant; Visit Provider Physician Assistant ==

== ENCOUNTER 2025-03-30 12:03 | Outpatient (REF) | payer OTHER, SELFPAY ==
--- NOTE | ~2025-03-30 | XR_ITS ---
EXAMINATION: XR LUMBAR SPINE 2-3 VIEWS HISTORY: M54.50 - Low back pain, unspecified COMPARISON: There are no prior studies for comparison. FINDINGS: AP, lateral, and coned down views of the lumbar spine are submitted. Osseous mineralization is normal. Five nonrib-bearing lumbar vertebral bodies are identified, maintaining normal height and alignment without evidence of fracture or spondylolisthesis. The intervertebral disc spaces are preserved. There is minimal anterior spurring. The posterior elements are intact. The visualized paraspinal soft tissues are unremarkable. XR/XR lumbar spine 2-3V IMPRESSION: Minimal anterior spurring. Otherwise unremarkable examination of the lumbar spine. Electronically signed by: Kd Berrios MD 03/31/2025 08:57 AM EDT
--- OUTSIDE RECORDS SUMMARY | 2025-03-30 13:13 | XMS_ITS | Patient Health Record ---
Author Organization [facility] Address [address] [address] Care Team Providers Care Furnace Helper Name Role Phone Mckenzie Luz Primary Care Provider Unavailabl e BEN MORGAN Unavailable [phone] Allergies No Known Allergies Reason For Referral Reason B/L feet pain Diagnosis 1 Right foot pain (M79 .671) Diagnosis 2 Left foot pain (M79. 672) Diagnosis 3 Gastrocnemius equinu s of right lower extremity (M62.461) Diagnosis 4 Gastrocnemius equinu s of left lower extremity (M62.462) Referring Provider First Name Mckenzie Referring Provider Last Name Natty Referred Organization [facility] Referred Provider BEN MORGAN Referred Address [address] [place] [phone], Referred Provider Specialty Podiatry Referral Priority Routine Reason B/L feet pain Diagnosis 1 Left foot pain (M79. 672) Diagnosis 2 Right foot pain (M79 .671) Referring Provider First Name Mckenzie Referring Provider Last Name Natty Referred Organization [facility] Referred Provider BEN MORGAN Referred Address [address] [place] [phone], Referred Provider Specialty Podiatry Referral Priority Routine [...] Problem Status W/U Status Risk Notes Problem [id number] Gastrocnemius equinus of right lower extremity (M62.461) Active confirmed Problem 557040576 Gastrocnemius equinus of left lower extremity (M62.462) Active confirmed Vital Signs Temperature 97.2 degrees Fahrenheit 07/07/2024 Blood pressure diastolic 70 mm Hg 07/07/2024 Height 5ft 6.5in in 07/07/2024 Blood pressure systolic 120 mm Hg 07/07/2024 Weight 213.7 lbs 07/07/2024 BMI 33.97 kg/m2 07/07/2024 Encounters Encounter Location Date Provider Diagnosis [facility] [address] [facility] [address] [place] [address] 07/07/2024 BEN MORGAN Left foot pain M79.6 [...] Insured Coverage Start Date Coverage End Date [facility] [address] [address] [place] [address] [id number] Marco Alcantara Self - patient is the insured Medical (General) History Medical History History ICD Code Hyperlipidemia hypertension osteoarthritis of right knee Covid-19 2019 Benign Prostate Hyperplasia Obesity Anxiety Chronic pain Surgical History Surgery Date(Month/Year) colonoscopy 2016 ACL repair Partial knee surgery 2020
== END 2025-03-30 12:04 | disposition home or self-care (01) ==
LOC: HO.XRAY 12:03
PROVIDERS: PCP Physician Assistant; Visit Provider Physician Assistant
DX: M54.41 Lumbago with sciatica, right side (principal); M54.42 Lumbago with sciatica, left side; G89.29 Other chronic pain
CPT/HCPCS: 72100

== ENCOUNTER → 2025-03-30 12:09 | Outpatient (BNV) | payer OTHER, SELFPAY | PROVIDERS: PCP Physician Assistant; Visit Provider Radiology Diagnostic Radiology | DX: M54.50 Low back pain, unspecified (principal) | CPT/HCPCS: 72100 ==

== ENCOUNTER 2025-04-22 11:19 | Outpatient (AMB) | payer OTHER, SELFPAY ==
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
[2025-04-22 11:36] VITALS: BP 138/86; PULSE 64; RESP 14; TEMP 36.6; O2SAT 97; BMI 38.5
--- OUTSIDE RECORDS SUMMARY | 2025-04-22 13:27 | XMS_ITS | Patient Health Record ---
Author Organization [facility] Address [address] [address] Care Team Providers Care Exhauster Engineer Name Role Phone Mckenzie Luz Primary Care Provider Unavailabl e BEN MORGAN Unavailable [phone] Allergies No Known Allergies Reason For Referral Reason B/L feet pain Diagnosis 1 Right foot pain (M79 .671) Diagnosis 2 Left foot pain (M79. 672) Diagnosis 3 Gastrocnemius equinu s of right lower extremity (M62.461) Diagnosis 4 Gastrocnemius equinu s of left lower extremity (M62.462) Referring Provider First Name Mckenzie Referring Provider Last Name Natty Referred Organization [facility] Referred Provider BEN MORGAN Referred Address [address] [place] [phone], Referred Provider Specialty Podiatry Referral Priority Routine Reason B/L feet pain Diagnosis 1 Left foot pain (M79. 672) Diagnosis 2 Right foot pain (M79 .671) Referring Provider First Name Mckenzie Referring Provider Last Name Natty Referred Organization [facility] Referred Provider BEN MORGAN Referred Address [address] [place] [phone], Referred Provider Specialty Podiatry Referral Priority Routine [...] Problem Status W/U Status Risk Notes Problem [id number] Gastrocnemius equinus of right lower extremity (M62.461) Active confirmed Problem 248926265 Gastrocnemius equinus of left lower extremity (M62.462) Active confirmed Vital Signs Temperature 97.2 degrees Fahrenheit 07/07/2024 Blood pressure diastolic 70 mm Hg 07/07/2024 Height 5ft 6.5in in 07/07/2024 Blood pressure systolic 120 mm Hg 07/07/2024 Weight 213.7 lbs 07/07/2024 BMI 33.97 kg/m2 07/07/2024 Encounters Encounter Location Date Provider Diagnosis [facility] [address] [facility] [address] [place] [address] 07/07/2024 BEN MORGAN Left foot pain M79.6 [...] Insured Coverage Start Date Coverage End Date [facility] [address] [address] [place] [address] [id number] aMrco Alcantara Self - patient is the insured Medical (General) History Medical History History ICD Code Hyperlipidemia hypertension osteoarthritis of right knee Covid-19 2019 Benign Prostate Hyperplasia Obesity Anxiety Chronic pain Surgical History Surgery Date(Month/Year) colonoscopy 2016 ACL repair Partial knee surgery 2020
== END 2025-04-22 12:23 | disposition home or self-care (01) ==
LOC: HO.HMCFM 11:20
PROVIDERS: PCP Physician Assistant; Visit Provider Physician Assistant
DX: M54.42 Lumbago with sciatica, left side (principal); E66.01 Morbid (severe) obesity due to excess calories; Z68.35 Body mass index [BMI] 35.0-35.9, adult; M54.41 Lumbago with sciatica, right side; G89.29 Other chronic pain; R35.1 Nocturia; I10 Essential (primary) hypertension; R73.03 Prediabetes

== ENCOUNTER → 2025-04-22 11:19 | Outpatient (BNVA) | payer OTHER, SELFPAY | PROVIDERS: PCP Physician Assistant; Visit Provider Physician Assistant | DX: I10 Essential (primary) hypertension (principal); F41.9 Anxiety disorder, unspecified; F32.A Depression, unspecified; E66.9 Obesity, unspecified; M54.9 Dorsalgia, unspecified; M54.42 Lumbago with sciatica, left side; M54.41 Lumbago with sciatica, right side; G89.29 Other chronic pain; R35.1 Nocturia; E66.01 Morbid (severe) obesity due to excess calories; Z68.35 Body mass index [BMI] 35.0-35.9, adult; R73.03 Prediabetes; Z86.718 Personal history of other venous thrombosis and embolism | CPT/HCPCS: 99212 ==

== ENCOUNTER 2025-04-30 12:57 | Outpatient (AMB) | payer OTHER, SELFPAY ==
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
--- OUTSIDE RECORDS SUMMARY | 2025-04-30 13:01 | XMS_ITS | Encounter Summary ---
Author Organization [facility] Address [address] [place] [address] Care Team Providers Care Elocution Teacher Name Role Phone Pcp, No Primary Care Provider Unavailannie e Anel Orozco LCSW Unavailable [phone] Marco Conroy MD Unavailable [phone] Marco Correa MD Unavailable [phone] Encounter Details Date Type Department Care Team (Late st Contact Info) Description 09/08/2021 Erroneous Encounter [facility]PT [address] [place] [address] Jaun Asif Jr., MD [address] [place] [address] Social History Tobacco Use Types Packs/Day Years [...] Concerns Active Problems Noted Date Diagnosed Date DRYR-Zixwolypo-Jznxons/Hyperactivity Disorder (A DHD) 03/10/2021 documented as of this encounter Care Teams Elocution Teacher Relationship Specialty Start Date End Date Pcp, No PCP - General General Medicine 02/11/21 Anel Orozco LCSW [address] [place] [address] System Development Manager Social Work 03/10/21 Marco Conroy MD [address] [place] [address] Psychiatry, General 03/15/21 Marco Correa MD [address] [place] [address] Psychiatry, General 04/22/21 documented as of this encounter
--- OUTSIDE RECORDS SUMMARY | 2025-04-30 13:01 | XMS_ITS | Patient Health Record ---
Author Organization [facility] Address [address] [address] Care Team Providers Care Marketing Administrative Assistant Name Role Phone Mckenzie Luz Primary Care Provider Unavailabl e BEN MORGAN Unavailable [phone] Allergies No Known Allergies Reason For Referral Reason B/L feet pain Diagnosis 1 Right foot pain (M79 .671) Diagnosis 2 Left foot pain (M79. 672) Diagnosis 3 Gastrocnemius equinu s of right lower extremity (M62.461) Diagnosis 4 Gastrocnemius equinu s of left lower extremity (M62.462) Referring Provider First Name Mckenzie Referring Provider Last Name Natty Referred Organization [facility] Referred Provider BEN MORGAN Referred Address [address] [place] [phone], Referred Provider Specialty Podiatry Referral Priority Routine Reason B/L feet pain Diagnosis 1 Left foot pain (M79. 672) Diagnosis 2 Right foot pain (M79 .671) Referring Provider First Name Mckenzie Referring Provider Last Name Natty Referred Organization [facility] Referred Provider BEN MORGAN Referred Address [address] [place] [phone], Referred Provider Specialty Podiatry Referral Priority Routine [...] Problem Status W/U Status Risk Notes Problem [id number] Gastrocnemius equinus of right lower extremity (M62.461) Active confirmed Problem [id number] Gastrocnemius equinus of left lower extremity (M62.462) Active confirmed Vital Signs Temperature 97.2 degrees Fahrenheit 07/07/2024 Blood pressure diastolic 70 mm Hg 07/07/2024 Height 5ft 6.5in in 07/07/2024 Blood pressure systolic 120 mm Hg 07/07/2024 Weight 213.7 lbs 07/07/2024 BMI 33.97 kg/m2 07/07/2024 Encounters Encounter Location Date Provider Diagnosis [facility] [address] [facility] [address] [place] [address] 07/07/2024 BEN MORGAN Left foot pain M79.6 [...] Insured Coverage Start Date Coverage End Date [facility] [address] [address] [place] [address] [id number] Marco Alcantara Self - patient is the insured Medical (General) History Medical History History ICD Code Hyperlipidemia hypertension osteoarthritis of right knee Covid-19 2019 Benign Prostate Hyperplasia Obesity Anxiety Chronic pain Surgical History Surgery Date(Month/Year) colonoscopy 2016 ACL repair Partial knee surgery 2020
[2025-04-30 13:04] VITALS: BP 124/84; BMI 38.3
== END 2025-04-30 13:55 | disposition home or self-care (01) ==
LOC: HO.HSMS 12:58
PROVIDERS: PCP Physician Assistant; Visit Provider Psychiatry & Neurology Neurology
DX: R41.89 Other symptoms and signs involving cognitive functions and awareness (principal); R45.87 Impulsiveness; G47.33 Obstructive sleep apnea (adult) (pediatric)
CPT/HCPCS: 99204; G2211

== ENCOUNTER 2025-04-30 12:57 | Outpatient (REF) | payer OTHER, SELFPAY ==
[2025-04-30 17:39] LABS: MANUAL DIFF FLAG NO
[2025-04-30 17:48] LABS: Hematocrit 46.3 % (42.0-52.0); Hemoglobin 15.2 g/dl (14.0-18.0); Imm Gran Abs Auto 0.05 X10*3/uL (0.00-0.03); Imm Gran Pct Auto 0.5 % (0.0-0.4); Lymphocytes Absolute Auto 3.1 X10*3/uL (1.2-4.9); Mean Corpuscular HGB Conc 32.8 g/dl (31.0-36.0); Mean Corpuscular Hemoglobin 27.7 pg (27.0-33.0); Mean Corpuscular Volume 84.5 fL (80.0-98.0); NRBC Abs Auto 0.000 X10*3/uL (0.0-0.012); NRBC Pct Auto 0.0 /100WBC (0.0-0.2); Platelet Count 333 X10*3/uL (160-400); Red Blood Count 5.48 X10*6/uL (4.60-5.80); White Blood Count 10.3 X10*3/uL (4.8-10.8)
[2025-04-30 17:53] LABS: Hemoglobin A1C 160.9513 umol/L; Total Hemoglobin (HGBA1C) 3961.1434 umol/L
[2025-04-30 18:04] LABS: Alanine Aminotransferase 30 U/L (0-40); Albumin Level 4.7 g/dL (3.5-5.0); Alkaline Phosphatase 69 U/L (39-117); Anion Gap 16 (12-20); Aspartate Amino Transferase 26 U/L (5-37); Blood Urea Nitrogen 18 mg/dL (9-16); Calcium 9.4 mg/dL (8.4-10.2); Carbon Dioxide 25 mmol/L (22-29); Chloride 104 mmol/L (96-108); Cholesterol 245 mg/dL (<200); Estimated Glomerular Filt Rate > 60; HDL Cholesterol 45 mg/dL (>40); Potassium 3.6 mmol/L (3.3-5.1); Sodium 141 mmol/L (135-145); Total Protein 7.3 g/dL (6.5-8.0); Triglycerides 275 mg/dL (<150)
[2025-04-30 18:29] LABS: Folate 11.7 ng/mL (> or = 4.0); Vitamin B12 742 pg/mL (200-900)
== END 2025-04-30 12:58 | disposition home or self-care (01) ==
LOC: HO.HKASLDS 12:57
PROVIDERS: PCP Physician Assistant; Visit Provider Psychiatry & Neurology Neurology
DX: R45.87 Impulsiveness (principal); R73.01 Impaired fasting glucose; R41.89 Other symptoms and signs involving cognitive functions and awareness; R41.840 Attention and concentration deficit; G47.33 Obstructive sleep apnea (adult) (pediatric); I10 Essential (primary) hypertension; M54.42 Lumbago with sciatica, left side; M54.41 Lumbago with sciatica, right side; E66.01 Morbid (severe) obesity due to excess calories; F33.0 Major depressive disorder, recurrent, mild; R73.03 Prediabetes; R35.1 Nocturia; G89.29 Other chronic pain; Z68.35 Body mass index [BMI] 35.0-35.9, adult; Z99.89 Dependence on other enabling machines and devices
CPT/HCPCS: 36415; 80053; 80061; 82607; 82746; 83036; 84443; 85025; 99202

== ENCOUNTER → 2025-05-17 11:12 | Outpatient (BNV) | payer OTHER, SELFPAY | PROVIDERS: PCP Physician Assistant; Visit Provider Radiology Diagnostic Radiology | DX: R41.89 Other symptoms and signs involving cognitive functions and awareness (principal) | CPT/HCPCS: 70551 ==

== ENCOUNTER 2025-05-17 11:37 | Outpatient (REF) | payer OTHER, SELFPAY ==
--- NOTE | ~2025-05-17 | MR_ITS ---
CLINICAL HISTORY: R41.89 - Other symptoms and signs involving cognitive functions and awar... MR Brain without gadolinium Comparison: None provided Findings: No restricted diffusion. No intra-axial mass or hemorrhage. Age appropriate cerebral volume loss. Patchy high FLAIR signal within the periventricular and subcortical white matter. No midline shift. No hydrocephalus. Vascular flow voids are intact. Orbital contents are unremarkable. The sinuses and mastoid air cells are clear. No focal bone lesion. IMPRESSION: No acute findings. This document has been electronically signed by: Irma Torres MD on 05/19/2025 13:51:36
== END 2025-05-17 11:38 | disposition home or self-care (01) ==
LOC: HO.MRI 11:37
PROVIDERS: PCP Physician Assistant; Visit Provider Psychiatry & Neurology Neurology
DX: R41.89 Other symptoms and signs involving cognitive functions and awareness (principal); R41.840 Attention and concentration deficit
CPT/HCPCS: 70551

== ENCOUNTER 2025-05-22 14:17 | Outpatient (AMB) | payer OTHER, SELFPAY ==
--- NOTE | 2025-05-22 14:20 | A.OFFVIS_ITS ---
Vital Signs 05/22/25 14:27 Height 5 ft 5 in Weight 229 lb 2 oz BMI 38.1 BP 134/85 Blood Pressure Location Rt brachial Position Sitting Pulse 91 Pulse Source Pulse Oximeter Pulse Oximetry (%) 98 Oxygen Delivery Method Room Air Intake Visit Reasons: Lumbago with sciatica, left/right side Intake Note: Pain today 04/07 Quality Tester Required: No Accompanied by: Self / Same As Patient Allergies No Known Allergies Allergy (Verified 05/22/25 14:31) HPI Comments Details: The patient is a 59-year-old male presenting with low back pain and bilateral sciatica, more pronounced on the left side. The pain has been present for 4 to 5 years, described as stabbing, shooting, burning, and aching, radiating to the back of both legs, and is worse on the left side. The pain is exacerbated by standing for prolonged periods, walking, climbing stairs, and changing positions from sitting to standing. The patient has a history of hypertension, anxiety, depression, obesity, chronic pain, osteoarthritis, and a history of deep vein thrombosis in 2022. He manages his pain with tramadol 100 mg twice daily and duloxetine 60 mg twice daily, which provides partial relief. He has tried massage therapy with minimal relief and is willing to start physical therapy, which has been prescribed but not yet initiated. The patient reports bilateral knee pain and has undergone right knee arthroscopy surgery. He is currently unemployed, previously worked at a [employer], where lifting heavy boxes exacerbated his pain. He denies smoking or alcohol use but uses homemade cannabis with a small amount of THC. He sees a Psychological counselor and Neurologist for anxiety, memory change, and concentration deficit. He recently started taking Depakote, which has caused small headaches. - Onset: 4 to 5 years ago - Quality: Stabbing, shooting, burning, aching, tightness - Location: Low back, radiating to the back of both legs, worse on the left side; bilateral knee pain - Exacerbating factors: Standing for prolonged periods, walking, climbing stairs, changing positions from sitting to standing - Relieving factors: Partial relief with tramadol and duloxetine - Interference: Affects daily activities such as standing, walking, and climbing stairs - Affect: Anxiety and depression related to chronic pain - Analgesia: Tramadol 100 mg BID, Duloxetine 60 mg BID, pain level 8/10 in the morning, 5/10 at night - Adverse Effects: Small headaches from Depakote - Activities of Daily Living: Pain interferes with standing, walking, climbing stairs, and changing positions - Aberrant Drug Related Behaviors: Uses homemade cannabis with THC, denies smoking or alcohol use [facility] Medical History (Updated 05/22/25 @ 14:45 by LALY Chase) FLO on CPAP Impulsiveness Right leg DVT Surgical History S/P ACL reconstruction Family History Family/Other Alcoholic Mother Edema Other Chronic mental illness Substance abuse Social History Housing: House Alcohol intake: current Patient Tobacco Use Status: Former Tobacco user Tobacco use type: Cigarette Years Smoked: unknown e-Cigarette/Vaping Use: Never Used Second Hand Smoke Exposure: No service: No Current occupational status: unemployed Cognitive needs: Yes (Trouble remembering ) Hearing needs: No Vision needs: No Review of Systems Const Details: - Musculoskeletal: Reports low back pain, bilateral knee pain, radiating leg pain, numbness in legs - Neurological: Reports memory change, concentration deficit, denies bowel or bladder dysfunction, or saddle anesthesia - Psychiatric: Reports anxiety, depression - General: Reports weight loss with Zepbound, previously on Wegovy All systems reviewed & are unremarkable except as noted in HPI and below Physical Exam Vital Signs: Last Vital Signs Pulse 91 05/22/25 14:27 BP 134/85 05/22/25 14:27 Pulse Ox 98 05/22/25 14:27 Oxygen Delivery Method Room Air 05/22/25 14:27 BMI result Body Mass Index 38.1 General: Appears afebrile. Alert and oriented. Mood and affect appropriate. Follows and participates in conversation appropriately. Respiratory effort is unlabored. No cough. Able to transition from sit to stand unassisted. Ambulates with bilaterally normal heel strike and toe off. General: Yes no CVA tenderness Back/Spine/Pelvis Other: Limited lumbar ROM due to pain. Mildly antalgic gait with slight limping. Demonstrates 5/5 strength of quadriceps bilaterally as well as flexion/dorsiflexion of bilateral feet against resistance. 2+ pedal pulses bilaterally. Straight leg rise with dorsiflexion negative bilaterally. +1 patellar and achilles reflexes bilaterally. Facet loading test positive bilaterally. Heladio?s, Pelvic compression and Stinchfield tests are negative bilaterally. No groin pain with I/E hip rotations. Valsalva maneuver negative. Back: no CVA tenderness Cervical Spine: cervical ROM normal, cervical muscular tenderness and No Cervical spine tenderness Thoracic/Lumbar Spine: thoracic and lumbar spine normal to inspection, No Thoracic/lumbar spine scar(s), Lasegue's sign negative, straight leg raise negative bilaterally, pain with thoraco-lumbar ROM, paraspinal muscle tenderness, thoraco-lumbar ROM limited, No thoracic spinal tenderness and No lumbar spinal tenderness Sacroiliac joints: bilaterally tender to palpation (mild) Extrem General: Yes capillary refill normal, Yes no clubbing, cyanosis or edema and Yes no calf tenderness Right lower extremity: knee Details: normal to inspection, tenderness Location: of the patella, of the popliteal fossa and of the lateral joint line, normal ROM and crepitus; no swelling, no ecchymosis, no deformity and no unusual warmth Left lower extremity: knee (Limited ROM due to pain) Details: normal to in spection, tenderness Location: of the patella, of the popliteal fossa and of the lateral joint line and crepitus; no swelling, no ecchymosis, no deformity and no unusual warmth Results Reviewed Results Reviewed: XR LUMBAR SPINE 2-3 VIEWS 03/30/25 HISTORY: M54.50 - Low back pain, unspecified COMPARISON: There are no prior studies for comparison. FINDINGS: AP, lateral, and coned down views of the lumbar spine are submitted. Osseous mineralization is normal. Five nonrib-bearing lumbar vertebral bodies are identified, maintaining normal height and alignment without evidence of fracture or spondylolisthesis. The intervertebral disc spaces are preserved. There is minimal anterior spurring. The posterior elements are intact. The visualized paraspinal soft tissues are unremarkable. IMPRESSION: Minimal anterior spurring. Otherwise unremarkable examination of the lumbar spine. Assessment & Plan Assessment & Plan (1) Chronic low back pain with bilateral sciatica: Code(s): M54.41 - Lumbago with sciatica, right side; M54.42 - Lumbago with sciatica, left side; G89.29 - Other chronic pain Category: Medical Qualifiers: Back pain laterality: bilateral Qualified Code(s): M54.42 - Lumbago with sciatica, left side; M54.41 - Lumbago with sciatica, right side; G89.29 - Other chronic pain (2) Bilateral knee pain: Code(s): M25.561 - Pain in right knee; M25.562 - Pain in left knee Category: Medical (3) Lumbar spondylosis: Code(s): M47.816 - Spondylosis without myelopathy or radiculopathy, lumbar region Category: Medical Plan The patient will obtain x-rays of both knees today to further evaluate the bilateral knee pain. He will start physical therapy to address his chronic pain and improve mobility and flexibility with core and quadriceps muscle strengthening. Briefly discussed interventional treatments for low back and bilateral pain including diagnostic versus therapeutic injections, neuromodulation and ablative procedures for longer term pain relief. Continue daily physical activity, gentle stretching exercises at home, adequate hydration, good posture, and weight loss. Script provided for Celebrex. Side effects and precautions were discussed with patient. Follow-up in 6 to 8 weeks to assess progress and consider potential intervention therapy. Patient was informed and verbally consented to the use of an ambient scribe for clinic note documentation during this visit. Orders: Orders XR knee LT 3V 05/22/25 M25.561 - Pain in right knee, M25.562 - Pain in left knee PT Evaluation and Treatment 05/22/25 G89.29 - Other chronic pain, M25.561 - Pain in right knee, M25.562 - Pain in left knee, M47.816 - Spondylosis without myelopathy or radiculopathy, lumbar region, M54.41 - Lumbago with sciatica, right side, M54.42 - Lumbago with sciatica, left side XR knee RT 3V 05/22/25 M25.561 - Pain in right knee, M25.562 - Pain in left knee Medications: New celecoxib (Celebrex) Take it with food and full glass of water. Avoid other NSAIDs. 200 mg PO BID PRN 60 caps 0RF pain 30 days G89.29 - Other chronic pain, M25.561 - Pain in right knee, M25.562 - Pain in left knee, M54.41 - Lumbago with sciatica, right side, M54.42 - Lumbago with sciatica, left side Coding Level of Care Code New Pt Level 4 (95247) Diagnoses Chronic bilateral low back pain with bilateral sciatica M54.42; M54.41; G89.29 Back pain laterality: bilateral Bilateral knee pain M25.561; M25.562 Lumbar spondylosis M47.816
--- OUTSIDE RECORDS SUMMARY | 2025-05-22 14:20 | XMS_ITS | Patient Health Record ---
Author Organization [facility] Address [address] [address] Care Team Providers Care Propagator Laborer Name Role Phone Mckenzie Luz Primary Care Provider Unavailabl e BEN MORGAN Unavailable [phone] Allergies No Known Allergies Reason For Referral Reason B/L feet pain Diagnosis 1 Right foot pain (M79 .671) Diagnosis 2 Left foot pain (M79. 672) Diagnosis 3 Gastrocnemius equinu s of right lower extremity (M62.461) Diagnosis 4 Gastrocnemius equinu s of left lower extremity (M62.462) Referring Provider First Name Mckenzie Referring Provider Last Name Natty Referred Organization [facility] Referred Provider BEN MORGAN Referred Address [address] [place] [phone], Referred Provider Specialty Podiatry Referral Priority Routine Reason B/L feet pain Diagnosis 1 Left foot pain (M79. 672) Diagnosis 2 Right foot pain (M79 .671) Referring Provider First Name Mckenzie Referring Provider Last Name Natty Referred Organization [facility] Referred Provider BEN MORGAN Referred Address [address] [place] [phone], Referred Provider Specialty Podiatry Referral Priority Routine [...] Problem Status W/U Status Risk Notes Problem [id number] Gastrocnemius equinus of right lower extremity (M62.461) Active confirmed Problem 435768335 Gastrocnemius equinus of left lower extremity (M62.462) Active confirmed Vital Signs Temperature 97.2 degrees Fahrenheit 07/07/2024 Blood pressure diastolic 70 mm Hg 07/07/2024 Height 5ft 6.5in in 07/07/2024 Blood pressure systolic 120 mm Hg 07/07/2024 Weight 213.7 lbs 07/07/2024 BMI 33.97 kg/m2 07/07/2024 Encounters Encounter Location Date Provider Diagnosis [facility] [address] [facility] [address] [place] [address] 07/07/2024 BEN MORGAN Left foot pain M79.6 [...] Insured Coverage Start Date Coverage End Date [facility] [address] [address] [place] [address] [phone] [id number] Marco Alcantara Self - patient is the insured Medical (General) History Medical History History ICD Code Hyperlipidemia hypertension osteoarthritis of right knee Covid-19 2019 Benign Prostate Hyperplasia Obesity Anxiety Chronic pain Surgical History Surgery Date(Month/Year) colonoscopy 2016 ACL repair Partial knee surgery 2020
--- OUTSIDE RECORDS SUMMARY | 2025-05-22 14:20 | XMS_ITS | Encounter Summary ---
Author Organization [facility] Address [address] [place] [address] Care Team Providers Care Erosion Control Specialist Name Role Phone Pcp, No Primary Care Provider Unavailannie e Anel Orozco LCSW Unavailable [phone] Marco Conroy MD Unavailable [phone] Marco Correa MD Unavailable [phone] Encounter Details Date Type Department Care Team (Late st Contact Info) Description 09/08/2021 Erroneous Encounter [facility] [address] [place] [address] Jaun Asif Jr., MD [address] [place] [address] Social History Tobacco Use Types Packs/Day Years [...] Concerns Active Problems Noted Date Diagnosed Date OXAP-Zilewawcd-Zmlcgci/Hyperactivity Disorder (A DHD) 03/10/2021 documented as of this encounter Care Teams Erosion Control Specialist Relationship Specialty Start Date End Date Pcp, No PCP - General General Medicine 02/11/21 Anel Orozco LCSW [address] [place] [address] Consumer Affairs Manager Social Work 03/10/21 Marco Conroy MD [address] [place] [address] Psychiatry, General 03/15/21 Marco Correa MD [address] [place] [address] Psychiatry, General 04/22/21 documented as of this encounter
[2025-05-22 14:27] VITALS: BP 134/85; PULSE 91; O2SAT 98; BMI 38.1
== END 2025-05-22 14:50 | disposition home or self-care (01) ==
LOC: HO.PMC 14:18
PROVIDERS: PCP Physician Assistant; Referring Provider Physician Assistant; Visit Provider Nurse Practitioner Family
DX: M54.42 Lumbago with sciatica, left side (principal); M54.41 Lumbago with sciatica, right side; G89.29 Other chronic pain; M25.561 Pain in right knee; M25.562 Pain in left knee; M47.816 Spondylosis without myelopathy or radiculopathy, lumbar region
CPT/HCPCS: 99204

== ENCOUNTER → 2025-05-22 14:17 | Outpatient (BNVA) | payer OTHER, SELFPAY | PROVIDERS: PCP Physician Assistant; Referring Provider Physician Assistant; Visit Provider Nurse Practitioner Family | DX: M54.42 Lumbago with sciatica, left side (principal); M54.41 Lumbago with sciatica, right side; M25.561 Pain in right knee; M25.562 Pain in left knee; M47.816 Spondylosis without myelopathy or radiculopathy, lumbar region; G89.29 Other chronic pain | CPT/HCPCS: 99202 ==

== ENCOUNTER 2025-07-02 08:29 | Outpatient (REF) | payer OTHER, SELFPAY ==
--- OUTSIDE RECORDS SUMMARY | 2024-07-03 04:45 | XMS_ITS ---
Author Organization [facility] Address [address] [address] Care Team Providers Care Data Keyer Name Role Phone Mckenzie Luz Primary Care Provider UnavailBEN Shanks Unavailable [phone] Allergies No Known Allergies REASON FOR VISIT b/l Ankle and feet pain, Questioning if he has a sprain on the left foot Medications Medication SIG (Take, Route, Frequency, Duration) Notes Start Date End Date Status Cymbalta 60 MG 1 capsule Orally Onc e a day Active Doxycycline Hyclate 100 MG 1 capsule Ora lly Once a day Active Lisinopril-hydroCHLOROthia zide 20-12.5 MG 1 tablet Orally Once a day Active Percocet 5-325 MG 1 tablet as needed O rally every 6 hrs Active Tamsulosin HCl 0.4 MG 1 capsule Orally O nce a day Active traMADol HCl 100 MG 1 tablet as needed O rally every 6 hrs Active Wegovy 0.25 MG/0.5ML 0.5 mL Subcutaneous Active Azithromycin 250 MG as directed Orally Active Encounters Encounter Location Date Provider Diagnosis [facility] [address] [address] 07/03/2024 BEN MORGAN Plan Of Treatment No Information Progress Notes * Marco SCHULZDOB:1965 (60 yo M)Acc No.[id number]:07/03/2024 Consult note Patient: Marco RENNER Provider: Fabiola Ervin DPMayo :1965 A ge:59 Y S ex:Male Date:07/03/2024 Phone: Address:[address] [place] [phone] Pcp:Mckenzie Luz Subjective: * Chief Complaints: * 1 . b/l Ankle and feet pain, Questioning if he has a sprain on the left foot. * Medical History: H yperlipidemia, Hypertension, Osteoarthritis of right knee. * Surgical History: c olonoscopy 2016, ACL repair . * Family History: Hypertension. * Social History: T obacco- No Alcohol- No. * Medications: T aking Wegovy 0.25 MG/0.5ML Solution Auto-injector 0.5 mL Subcutaneous , Taking traMADol HCl 100 MG Tablet 1 tablet as needed Orally every 6 hrs , Taking Tamsulosin HCl 0.4 MG Capsule 1 capsule Orally Once a day , Taking Percocet 5-325 MG Tablet 1 tablet as needed Orally every 6 hrs , Taking Lisinopril-hydroCHLOROthiazide 20- 12.5 MG Tablet 1 tablet Orally Once a day , Taking Doxycycline Hyclate 100 MG Capsule 1 capsule Orally Once a day , Taking Cymbalta 60 MG Capsule Delayed Release Particles 1 capsule Orally Once a day , Taking Azithromycin 250 MG Tablet as directed Orally * Allergies: N .K.D.A. Objective: * Vitals: Therapeutic Interventions: Assessment: Plan: * Treatment: * Billing Information: * Visit Code: * Procedure Codes: * Electronic signature of MAYE MORGAN D.P.M. on 07/02/2025 at 08:57 AM EDT Sign off status: Pending * Provider: Fabiola Ervin DPM Date: 07/03/2024 Generated for Yocasta burkett/Greta/Ran on: 07/02/2025 08:57 AM EDT
--- NOTE | 2025-07-02 08:34 | EEG_ITS ---
This is a 16 channel EEG with an EKG lead. Patient is reported awake during the tracing. Background EEG rhythm is 10-12 hertz 5-50 microvolt posteriorly and lower amplitude fast anteriorly. Photic stimulation does not produce any significant abnormality. Hyperventilation is not performed. Cardiac lead does not reveal any significant abnormality. No sharp wave spikes or paroxysmal tendency noted. Impression: Unremarkable EEG. MTDD
--- OUTSIDE RECORDS SUMMARY | 2025-07-02 08:57 | XMS_ITS | Clinical Summary ---
Author Organization [facility] Address [address] [place] [address] Care Team Providers Care Coach Wirer Name Role Phone Pcp, No Primary Care Provider UnavailAnel Liu LCSW Unavailable [phone] Marco Conroy MD Unavailable [phone] Marco Correa MD Unavailable [phone] Allergies No known active allergies Medications [...] Concerns Active Problems Noted Date Diagnosed Date BHDE-Khoqdieyu-Kdjpnft/Hyperactivity Disorder (A DHD) 03/10/2021 Insurance [facility] Care Teams Coach Wirer Relationship Specialty Start Date End Date Pcp, No PCP - General General Medicine 02/11/21 Anel Orozco LCSW [address] [place] [address] Mine Car Dispatcher Social Work 03/10/21 Marco Conroy MD [address] [place] [address] Psychiatry, General 03/15/21 Marco Correa MD [address] [place] [address] Psychiatry, General 04/22/21
--- OUTSIDE RECORDS SUMMARY | 2025-07-02 08:57 | XMS_ITS ---
Care Plan Created on: July 02, 2025 Marco Alcantara : 1965 Sex: Male Author Organization [facility] Address [address] [place] [address] Care Team Providers Care Rda Name Role Phone Pcp, No Primary Care Provider UnavailAnel Liu LCSW Unavailable [phone] Marco Conroy MD Unavailable [phone] Marco Correa MD Unavailable [phone] Active Problems * This document contains information received from the source organization and may not represent a complete record from that organization. Problem Noted Date Diagnosed Date Attention deficit hyperactiv ity disorder (ADHD), predominantly inattentive type 03/10/2021 Additional Health Concerns Active Problems Noted Date Diagnosed Date YXZF-Gnuashmki-Fieplby/Hyperactivity Disorder (A DHD) 03/10/2021 Goals Goal Patient [...]
--- OUTSIDE RECORDS SUMMARY | 2025-07-02 08:57 | XMS_ITS | Patient Health Record ---
Author Organization [facility] Address [address] [address] Care Team Providers Care Billing Specialist Name Role Phone Mckenzie Luz Primary Care Provider Unavailabl e BEN MORGAN Unavailable [phone] Allergies No Known Allergies Reason For Referral Reason B/L feet pain Diagnosis 1 Right foot pain (M79 .671) Diagnosis 2 Left foot pain (M79. 672) Diagnosis 3 Gastrocnemius equinu s of right lower extremity (M62.461) Diagnosis 4 Gastrocnemius equinu s of left lower extremity (M62.462) Referring Provider First Name Mckenzie Referring Provider Last Name Natty Referred Organization [facility] Referred Provider BEN MORGAN Referred Address [address] [place] [address], Referred Provider Specialty Podiatry Referral Priority Routine Reason B/L feet pain Diagnosis 1 Left foot pain (M79. 672) Diagnosis 2 Right foot pain (M79 .671) Referring Provider First Name Mckenzie Referring Provider Last Name Natty Referred Organization [facility] Referred Provider BEN MORGAN Referred Address [address] [place] [phone], Referred Provider Specialty Podiatry Referral Priority Routine [...] Problem Status W/U Status Risk Notes Problem Tightness of right gastrocnemius muscle (finding) (1657162318891984 6) Gastrocnemius equinus of right lower extremity (M62.461) Active confirmed Problem Spasm (60604346) Gastrocnemius equinus of left lower extremity (M62.462) Active confirmed Vital Signs Temperature 97.2 degrees Fahrenheit 07/07/2024 Blood pressure diastolic 70 mm Hg 07/07/2024 Height 5ft 6.5in in 07/07/2024 Blood pressure systolic 120 mm Hg 07/07/2024 Weight 213.7 lbs 07/07/2024 BMI 33.97 kg/m2 07/07/2024 Encounters Encounter Location Date Provider Diagnosis [facility] [address] [facility] [address] [place] [address] 07/07/2024 BEN MORGAN Left foot pain M79.6 [...] End Date [facility] [address] [place] [address] [id number] Marco Alcantara Self - patient is the insured Medical (General) History Medical History History ICD Code Hyperlipidemia hypertension osteoarthritis of right knee Covid-19 2019 Benign Prostate Hyperplasia Obesity Anxiety Chronic pain Surgical History Surgery Date(Month/Year) colonoscopy 2016 ACL repair Partial knee surgery 2020
--- OUTSIDE RECORDS SUMMARY | 2025-07-02 08:57 | XMS_ITS | Encounter Summary ---
Author Organization [facility] Address [address] [place] [address] Care Team Providers Care Radio Television Announcer Name Role Phone Pcp, No Primary Care Provider Unavailannie e Anel Orozco LCSW Unavailable [phone] Marco Cornoy MD Unavailable [phone] Marco Correa MD Unavailable [phone] Encounter Details Date Type Department Care Team (Late st Contact Info) Description 09/08/2021 Erroneous Encounter [facility] CONVERSION DEPT [address] [place] [address] Jaun Asif Jr., MD [address] [place] [address] Social History Tobacco Use Types Packs/Day Years [...] Concerns Active Problems Noted Date Diagnosed Date XNME-Ofdeqfhug-Bxtjtyt/Hyperactivity Disorder (A DHD) 03/10/2021 documented as of this encounter Care Teams Radio Television Announcer Relationship Specialty Start Date End Date Pcp, No PCP - General General Medicine 02/11/21 Anel Orozco LCSW [address] [place] [address] Take Down Inspector Social Work 03/10/21 Marco Conroy MD [address] [place] [address] Psychiatry, General 03/15/21 Marco Correa MD [address] [place] [address] Psychiatry, General 04/22/21 documented as of this encounter
== END 2025-07-02 08:30 | disposition home or self-care (01) ==
LOC: HO.NEURO 08:29
PROVIDERS: PCP Physician Assistant; Visit Provider Psychiatry & Neurology Neurology
DX: R45.87 Impulsiveness (principal); R41.89 Other symptoms and signs involving cognitive functions and awareness
CPT/HCPCS: 95816

== ENCOUNTER → 2025-07-02 08:34 | Outpatient (BNV) | payer OTHER, SELFPAY | PROVIDERS: PCP Physician Assistant; Visit Provider Psychiatry & Neurology Neurology | DX: R45.87 Impulsiveness (principal) | CPT/HCPCS: 95816 ==

== ENCOUNTER 2025-07-14 12:58 | Outpatient (AMB) | payer OTHER, SELFPAY ==
--- OUTSIDE RECORDS SUMMARY | 2024-07-03 04:45 | XMS_ITS ---
Author Organization [facility] Address [address] [address] Care Team Providers Care Blood Bank Laboratory Professional Name Role Phone Mckenzie Luz Primary Care Provider UnavailBEN Shanks Unavailable [phone] Allergies No Known Allergies REASON FOR VISIT [...] Active Encounters Encounter Location Date Provider Diagnosis [facility] [address] [address] 07/03/2024 BEN MORGAN Plan Of Treatment No Information Progress Notes * Marco SCHULZDOB:1965 (60 yo M)Acc No.[id number]:07/03/2024 Consult note Patient: Marco RENNER Provider: Fabiola Ervin DPMayo :1965 A ge:59 Y S ex:Male Date:07/03/2024 Phone: Address:[address] [place] [phone] Pcp:Mckenzie Luz Subjective: * Chief Complaints: * [...] Electronic signature of MAYE MORGAN D.P.M. on 07/14/2025 at 04:57 PM EDT Sign off status: Pending * Provider: Fabiola Ervin DPM Date: 07/03/2024 Generated for Yocasta burkett/Greta/Ran on: 07/14/2025 04:57 PM EDT
--- NOTE | 2025-07-14 13:00 | A.OFFVIS_ITS ---
Intake Visit Reasons: nocturia/ second opinion Intake Note: Patient is present for NOCTURIA/ SECOND OPINION Urology Medication:NONE Antibiotic Allergy:NONE Blood Thinner:NONE TODAY'S PVR:0ML'S Travel Registered Nurse Icu Required: No Allergies No Known Allergies Allergy (Verified 07/14/25 13:34) Medication List - Last Reconciled 07/14/25 by LALY Monzon-JOJO celecoxib (Celebrex) 200 mg PO BID PRN 30 days divalproex ER (Depakote ER) 500 mg PO DAILY duloxetine 60 mg PO BID lisinopril-hydrochlorothiazide 20-12.5 mg 1 tab PO DAILY tirzepatide (weight loss) (Zepbound) 2.5 mg (0.5 mL) subcut QWEEK tirzepatide (weight loss) (Zepbound) 5 mg (0.5 mL) subcut QWEEK tramadol 100 mg (2 x 50 mg) PO BID PRN 28 days HPI Comments Details: Marco is a 60-year-old male patient of Dr. Lerma. He has a past medical history of FLO on CPAP, impulsiveness question frontal lobe injury question undiagnosed mood disorder, right leg DVT. He presents to the office today for a 2nd opinion of his ongoing lower urinary tract symptoms. In discussion with the patient today he reports noting over the last 2-3 years he has been having ongoing issues with nocturia, urinary frequency, urinary urgency, and urge incontinence. 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 He does report being on a medication with [facility] however does not recall the name in does not feel this was helpful. He reports he was recently diagnosed with sleep apnea and has since been compliant with CPAP and does feel episodes of nocturia have improved. He reports having recently followed up with sleep medicine and will be undergoing further treatment options as he feels his mask is not fitting him appropriately. In office urinalysis results reviewed with the patient today. We did discuss signing medical release form to obtain previous urology records for continuity of care. He reports having had a previous ultrasound of his kidneys and bladder less than a year ago. We discussed at length potential causes of these lower urinary tract symptoms he is experiencing as well as further treatment options and risks and benefits of these treatment options. We did discussed the importance of weight loss to assist with lower urinary tract symptoms as well as buried penis. All questions were answered. When asked he denies hematuria, dysuria, foul smelling urine, changes to urinary stream, flank pain, fever, and or chills. He otherwise offers no other issues or concerns at this time. [facility] Medical History FLO on CPAP Impulsiveness Right leg DVT Surgical History S/P ACL reconstruction Family History Family/Other Alcoholic Mother Edema Other Chronic mental illness Substance abuse Social History Housing: House Alcohol intake: current Patient Tobacco Use Status: Former Tobacco user Tobacco use type: Cigarette Years Smoked: unknown e-Cigarette/Vaping Use: Never Used Second Hand Smoke Exposure: No service: No Current occupational status: unemployed Cognitive needs: Yes (Trouble remembering ) Hearing needs: No Vision needs: No Review of Systems Const All systems reviewed & are unremarkable except as noted in HPI and below Physical Exam Const General: cooperative, comfortable, no acute distress, well developed, alert and awake Nutritional Appearance: overweight Orientation/consciousness: patient oriented x3 Limitations: other limitations (flight of ideas ) HEENT Head: Yes normal to inspection, Yes normocephalic and Yes atraumatic Ears: hearing grossly normal bilaterally Eyes General: appearance normal, both eyes and all related structures Neck Neck: Yes normal visual inspection and Yes trachea midline Chest Chest palpation & inspection: normal inspection of the chest Resp Effort & Inspection: normal respiratory effort and able to speak in complete sentences Cardio Rate: regular rate GI Inspection: Yes normal to inspection General: Yes no CVA tenderness Back/Spine/Pelvis Back: no CVA tenderness Skin General skin exam: no rashes or lesions noted Neuro General: patient oriented x3 Extrem General: Yes normal to inspection Psych Appearance: grossly normal and well kempt Mental Status: mental status grossly normal Speech and movement: Normal speech and movement present and Clear speech present Affect: normal affect Attitude: cooperative Thought process: Flight of ideas present Thought content: Normal thought content present Insight: Fair insight present (Psych) Judgement: Fair judgement present (Psych) Office Procedures Post Void Residual Post Residual Void Post Void Residual (PVR): 0 [id number]-[id number] Void Residual by ultrasound Results AMB Urinalysis, Automated UA Leukoctes 0 Severiano/uL Last Edit by [facility] on 07/14/25 13:27 UA Nitrite Negative Last Edit by Tami Dickson [facility] on 07/14/25 13:27 UA Urobilinogen 0.2 mg/dL Last Edit by Tami Dickson [facility] on 07/14/25 13:2 7 UA Protein 0 mg/dL Last Edit by Tami Dickson [facility] on 07/14/25 13:27 UA pH 6.0 Last Edit by Tami Dickson [facility] on 07/14/25 13:27 UA Blood 0 Vega/uL Last Edit by Tami Dickson [facility] on 07/14/25 13:27 UA Specific Ozark 1.015 Last Edit by Tami Dickson [facility] on 07/14/25 13: 27 UA Ketone Negative Last Edit by Tami Dickson [facility] on 07/14/25 13:27 UA Bilirubin 0 mg/dL Last Edit by Tami Dickson [facility] on 07/14/25 13:27 UA Glucose 0 mg/dL Last Edit by Tami Dickson [facility] on 07/14/25 13:27 Results Reviewed Results Reviewed: Laboratory Last Values Urine pH (Auto) 6.0 07/14/25 13:26 Specific [place] (Auto) 1.015 07/14/25 13:26 Urine Protein (Auto) 0 mg/dL 07/14/25 13:26 Glucose (UA)(Auto) 0 mg/dL 07/14/25 13:26 Urine Ketones (Auto) Negative 07/14/25 13:26 Urine Blood (Auto) 0 Vega/uL 07/14/25 13:26 Urine Nitrite (Auto) Negative 07/14/25 13:26 Urine Bilirubin (Auto) 0 mg/dL 07/14/25 13:26 Urine Urobilinogen (Auto) 0.2 mg/dL 07/14/25 13:26 Leukocyte Esterase (Auto) 0 Severiano/uL 07/14/25 13:26 Assessment & Plan Assessment & Plan (1) Lower urinary tract symptoms: Code(s): R39.9 - Unspecified symptoms and signs involving the genitourinary system Category: Medical (2) Nocturia: Code(s): R35.1 - Nocturia Category: Medical (3) Urinary incontinence, urge: Code(s): N39.41 - Urge incontinence Category: Medical (4) Urinary urgency: Code(s): R39.15 - Urgency of urination Category: Medical (5) Urinary frequency: Code(s): R35.0 - Frequency of micturition Category: Medical Plan In office urinalysis results reviewed with the patient today; as noted above. PVR 0 mL Medical release form signed will attempt to obtain previous urology records for continuity of care. We did discussed potential causes of lower urinary tract symptoms patient is experiencing as well as further treatment options and risks and benefits of these treatment options. Start Flomax as discussed and prescribed. We discussed bladder triggers and irritants. We discussed healthy bathroom behaviors. We discussed the importance of compliance in CPAP for overall health and well- being as well as for nocturia. All questions were answered. Follow-up in 1-3 months with PVR; or sooner with any issues, concerns, and or questions. Orders: Orders AMB Urinalysis Automated Today Z13.9 - Encounter for screening, unspecified Medications: New tamsulosin 0.4 mg PO BEDTIME 30 caps 3RF 30 days N40.1 - Benign prostatic hyperplasia with lower urinary tract symptoms, R35.1 - Nocturia Patient Instructions: The patient had an opportunity to ask questions regarding the treatment plan. All questions were answered. Physical exam, labs, and imaging were discussed and reviewed in detail. As well as risks, benefits, and discussion of treatment choices. No major barriers to understanding were identified. The patient expressed understanding and agreement with the above treatment plan. The patient was made aware they should contact our office by phone for worsening of their current condition, the appearance of new symptoms, or with any questions or concerns. Compliance is encouraged with any medications and follow up testing that is ordered. It is a privilege to be allowed the opportunity to participate in? your urological care.? Again, if you have any questions or concerns If you have any questions or concerns please do not hesitate to contact me. The office is [phone]. This note is constructed using voice recognition software. While every effort has been made to ensure accuracy barman errors may have been included. Yours sincerely, LALY Monzon-JOJO Coding Level of Care Code New Pt Level 4 (64822) Diagnoses Lower urinary tract symptoms R39.9 Nocturia R35.1 Urinary incontinence, urge N39.41 Urinary urgency R39.15 Urinary frequency R35.0 CPT Codes Post Residual Void - PVR CPT Code: 30323-Uspd Void Residual by ultrasound ([id number])
--- OUTSIDE RECORDS SUMMARY | 2025-07-14 16:57 | XMS_ITS | Clinical Summary ---
Author Organization [facility] Address [address] [place] [address] Care Team Providers Care Tugboat Operator Name Role Phone Pcp, No Primary Care Provider UnavailAnel Liu LCSW Unavailable [phone] Marco Conroy MD Unavailable [phone] Marco Correa MD Unavailable [phone] Allergies No known active allergies Medications [...] 1978 DTaP/Tdap/Td Vaccines (1 - Tdap) 1984 Colonoscopy 2010 Pneumococcal Vaccines 50+ (1 of 1 - PCV) 2015 Zoster (Shingles) Vaccine (1 of 2) 2015 Influenza Vaccine 05/29/2025 COVID-19 Vaccine (4 - 2024-2 6 season) 2025 11/20/2021, 03/04/2021, 02/11/2021 RSV Vaccine 60 years and older and Patients (1 - 1-dose 75+ series) 2040 Hepatitis B Vaccines Aged Out No long er eligible based on patient's age to complete this topic [...] Concerns Active Problems Noted Date Diagnosed Date WPEZ-Izdccfaca-Txkpymt/Hyperactivity Disorder (A DHD) 03/10/[address] [facility] Care Teams Tugboat Operator Relationship Specialty Start Date End Date Pcp, No PCP - General General Medicine 02/11/21 Anel Orozco LCSW [address] [place] [address] Solution Lead Social Work 03/10/21 Marco Conroy MD [address] [place] [address] Psychiatry, General 03/15/21 Marco Correa MD [address] [place] [address] Psychiatry, General 04/22/21
--- OUTSIDE RECORDS SUMMARY | 2025-07-14 16:57 | XMS_ITS ---
Care Plan Created on: July 14, 2025 Marco Alcantara : 1965 Sex: Male Author Organization [facility] Address [address] [place] [address] Care Team Providers Care Linux Network Engineer Name Role Phone Pcp, No Primary Care Provider UnavailAnel Liu LCSW Unavailable [phone] Marco Conroy MD Unavailable [phone] Marco Correa MD Unavailable [phone] Active Problems * This document contains information received from the source organization and may not represent a complete record from that organization. Problem Noted Date Diagnosed Date Attention deficit hyperactiv ity disorder (ADHD), predominantly inattentive type 03/10/2021 Additional Health Concerns Active Problems Noted Date Diagnosed Date ACSD-Wwfaapwaa-Xhkkrmc/Hyperactivity Disorder (A DHD) 03/10/2021 Goals Goal Patient [...]
--- OUTSIDE RECORDS SUMMARY | 2025-07-14 16:57 | XMS_ITS | Encounter Summary ---
Author Organization [facility] Address [address] [place] [address] Care Team Providers Care Rejected Items Clerk Name Role Phone Pcp, No Primary Care Provider Unavailannie e Anel Orozco LCSW Unavailable [phone] Marco Conroy MD Unavailable [phone] Marco Correa MD Unavailable [phone] Encounter Details Date Type Department Care Team (Late st Contact Info) Description 09/08/2021 Erroneous Encounter [facility] CONVERSION DEPT [address] [place] [address] Jaun Asif Jr., MD [address] [place] [address] Social History Tobacco Use Types Packs/Day Years [...] Concerns Active Problems Noted Date Diagnosed Date LEKI-Gaemkndbd-Nstppoy/Hyperactivity Disorder (A DHD) 03/10/2021 documented as of this encounter Care Teams Rejected Items Clerk Relationship Specialty Start Date End Date Pcp, No PCP - General General Medicine 02/11/21 Anel Orozco LCSW [address] [place] [address] Refrigerating Machine Operator Social Work 03/10/21 Marco Conroy MD [address] [place] [address] Psychiatry, General 03/15/21 Marco Correa MD [address] [place] [address] Psychiatry, General 04/22/21 documented as of this encounter
--- OUTSIDE RECORDS SUMMARY | 2025-07-14 16:57 | XMS_ITS | Patient Health Record ---
Author Organization [facility] Address [address] [address] Care Team Providers Care Manager Practice Name Role Phone Mckenzie Luz Primary Care Provider Unavailabl e BEN MORGAN Unavailable [phone] Allergies No Known Allergies Reason For Referral Reason B/L feet pain Diagnosis 1 Right foot pain (M79 .671) Diagnosis 2 Left foot pain (M79. 672) Diagnosis 3 Gastrocnemius equinu s of right lower extremity (M62.461) Diagnosis 4 Gastrocnemius equinu s of left lower extremity (M62.462) Referring Provider First Name Mckenzie Referring Provider Last Name Natty Referred Organization [facility] Referred Provider BEN MORGAN Referred Address [address] [place] [phone], Referred Provider Specialty Podiatry Referral Priority Routine Reason B/L feet pain Diagnosis 1 Left foot pain (M79. 672) Diagnosis 2 Right foot pain (M79 .671) Referring Provider First Name Mckenzie Referring Provider Last Name Natty Referred Organization [facility] Referred Provider BEN MORGAN Referred Address [address] [place] [phone], Referred Provider Specialty Podiatry Referral Priority Routine [...] Problem Tightness of right gastrocnemius muscle (finding) (3046605247451276 6) Gastrocnemius equinus of right lower extremity (M62.461) Active confirmed Problem Spasm (75091620) Gastrocnemius equinus of left lower extremity (M62.462) Active confirmed Plan Of Treatment No Information Insurance Providers Payer Name Payer Address Payer Phone Subscriber Number Group Number Insured Name Patient Relationship to Insured Coverage Start Date Coverage End Date [facility] [address] [address] [place] [address] [phone] [id number] Marco Alcantara Self - patient is the insured Medical (General) History Medical History History ICD Code Hyperlipidemia hypertension osteoarthritis of right knee Covid-19 2019 Benign Prostate Hyperplasia Obesity Anxiety Chronic pain Surgical History Surgery Date(Month/Year) colonoscopy 2016 ACL repair Partial knee surgery 2019
== END 2025-07-14 13:38 | disposition home or self-care (01) ==
LOC: HO.HUSH 13:00
PROVIDERS: PCP Physician Assistant; Visit Provider Nurse Practitioner Family
DX: R39.9 Unspecified symptoms and signs involving the genitourinary system (principal); R35.1 Nocturia; N39.41 Urge incontinence; R39.15 Urgency of urination; R35.0 Frequency of micturition; Z13.9 Encounter for screening, unspecified
CPT/HCPCS: 99204

== ENCOUNTER → 2025-07-14 12:58 | Outpatient (BNVA) | payer OTHER, SELFPAY | PROVIDERS: PCP Physician Assistant; Visit Provider Nurse Practitioner Family | DX: R35.1 Nocturia (principal); R39.9 Unspecified symptoms and signs involving the genitourinary system; N39.41 Urge incontinence; R35.0 Frequency of micturition | CPT/HCPCS: 51798; 81003; 99202 ==

== ENCOUNTER 2025-07-30 08:40 | Outpatient (AMB) | payer OTHER, SELFPAY ==
--- OUTSIDE RECORDS SUMMARY | 2024-07-03 04:45 | XMS_ITS ---
Author Organization [facility] Address [address] [address] Care Team Providers Care Picking Machine Operator Helper Name Role Phone Mckenzie Luz Primary Care Provider UnavailBEN Shanks Unavailable [phone] Allergies No Known Allergies REASON FOR VISIT [...] Active Encounters Encounter Location Date Provider Diagnosis [facility] [address] [address] 07/03/2024 BEN MORGAN Plan Of Treatment No Information Progress Notes * Marco SCHULZDOB:1965 (60 yo M)Acc No.[id number]:07/03/2024 Consult note Patient: Marco RENNER Provider: Fabiola Ervin DPMayo :1965 A ge:59 Y S ex:Male Date:07/03/2024 Phone: Address:[address] [place] [phone] Pcp:Mckenzie Luz Subjective: * Chief Complaints: * [...] Electronic signature of MAYE MORGAN D.P.M. on 07/30/2025 at 09:03 AM EDT Sign off status: Pending * Provider: Fabiola Ervin DPMayo Date: 0 07/03/2024 Generated for Yocasta burkett/Greta/Ran on: 09:03 AM EDT
--- NOTE | 2025-07-30 08:50 | A.OFFPC_ITS ---
Vital Signs 07/30/25 08:53 Height 5 ft 5 in Weight 229 lb 2 oz BMI 38.1 BP 116/74 Blood Pressure Location Rt brachial Position Sitting Respiration 16 Pulse 79 Pulse Source Pulse Oximeter Temp 96 F L Temp Source Oral Intake Visit Reasons: med follow up Intake Note: Medication follow up Certified Histologic Technician Required: No Allergies No Known Allergies Allergy (Verified 07/30/25 08:51) Medication List - Last Reconciled 07/30/25 by Carina Lerma PA-C celecoxib (Celebrex) 200 mg PO BID PRN 30 days divalproex ER (Depakote ER) 500 mg PO BID duloxetine 60 mg PO BID lisinopril-hydrochlorothiazide 20-12.5 mg 1 tab PO DAILY tamsulosin 0.4 mg PO BEDTIME 30 days tirzepatide (weight loss) (Zepbound) 5 mg (0.5 mL) subcut QWEEK tramadol 100 mg (2 x 50 mg) PO BID PRN 28 days Tobacco use date assessed: 07/30/25 Dental Screening Dental Screen Date: 11/26/24 HPI med follow up HPI Details Patient is a 60-year-old male who presents today for a follow up. He has a significant past medical history of hypertension, anxiety and depression, obesity, chronic pain, osteoarthritis, hx of DVT (2022). CV: Blood pressure today in the office is 116/74. He is on lisinopril/hydrochlorothiazide 20/12.5 mg. Musculoskeletal: arthritis is managed with tramadol 100 mg bid and is on 60 mg b.i.d. of duloxetine x 3 years. -he is following with pain management an d states he missed his pt appointment but called today to get an appointment. General: He was prescribed Zepbound after he was previously on Wegovy and found it effective. His insurance he states preferred Zepbound. Psych: He has neuropsych booked 08/05. He is seeing psych 08/25. He is following now with socorro mancini. On Cymbalta 60 mg twice a day. He has a hard time with concentration. His sister states that she thinks he has some impaired judgment decisions. 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 -In the past tried trazodone and woke up feeling altered and cordero. He struggles falling asleep at times. States that he will take Benadryl Uro: has tried flomax. He was referred to urology. Colonoscopy: 2018, states due in 2027 PSA: UTD- states manages through urology He states he goes to AA for alcohol abuse and states in his 20s used cocaine. No fam hx of cancer PFSH Medical History FLO on CPAP Impulsiveness Right leg DVT Surgical History S/P ACL reconstruction Family History Family/Other Alcoholic Mother Edema Other Chronic mental illness Substance abuse Social History (Updated 07/30/25 @ 08:57 by Martita Enrique CMA) Housing: House Alcohol intake: former Comment: quit 30 plus years ago Patient Tobacco Use Status: Former Tobacco user Tobacco use type: Cigarette Years Smoked: unknown e-Cigarette/Vaping Use: Never Used Second Hand Smoke Exposure: No Substance Use Type: Marijuana service: No Current occupational status: unemployed Cognitive needs: Yes (Trouble remembering ) Hearing needs: No Vision needs: No Questionnaire Thrive Questionnaire Date Thrive assessed: 11/26/24 I am a: Patient What is your living situation today?: I have a steady place to live Within the past 12 months, did the food you bought not last and you didn't have the money to get more?: Never true Within the past 12 months, did you worry whether your food would run out before you got money to buy more?: Never true Do you have trouble paying for medicines?: No Do you have trouble getting transportation to medical appointments?: No Do you have trouble paying your heating and electricity bill?: Yes Do you have trouble taking care of your child, family member or friend?: No Do you have trouble with day-to-day activities such as bathing, preparing meals, shopping, managing finances, etc.?: No Are you currently unemployed and looking for a job?: Yes Are you interested in more education?: No Currently or been in a relationship where the following occur: I choose not to answer THRIVE Score: 1 AUDIT C Alcohol Use Questionnaire (AUDIT-C) 1. How often do you have a drink containing alcohol?: Never (quit 30 plus years ago) 3. How often do you have six or more drinks on one occasion?: Never Total Score: 0 ESTEE-7 AMB Questionnaire ESTEE-7 Date ESTEE - 7 assessed: 11/26/24 Source: Developed by Drs. Kd Noble, Claudia Geiger, Desmond Bonilla and colleagues, with an educational teddy from [employer]. Physical exam (Primary Care) Vital Signs: Last Vital Signs Temp 96 F L 07/30/25 08:53 Pulse 79 07/30/25 08:53 Resp 16 07/30/25 08:53 BP 116/74 07/30/25 08:53 BMI result Body Mass Index 38.1 Tobacco/Smoking Status: Tobacco use Status Tobacco use date assessed 07/30/25 07/30/25 08:58 Patient Tobacco Use Status Former Tobacco user 07/30/25 08:50 Tobacco use type Cigarette 07/30/25 08:50 e-Cigarette/Vaping Use Never Used 07/30/25 08:50 Thrive Assessment: Date of Thrive Assessment Date Thrive assessed 11/26/24 07/30/25 08:50 Currently or been in a relationship where the following occur: I choose not to answer Const Orientation/consciousness: patient oriented x3 HENMT Ears: hearing grossly normal bilaterally Neck Thyroid: Thyroid normal Lymphatic: no lymphadenopathy noted Resp Auscultation: clear to auscultation bilaterally Cardio Rate: regular rate Rhythm: regular rhythm Heart sounds: S1 normal heart sound present and S2 normal heart sound present Skin General skin exam: no rashes or lesions noted Neuro General: patient oriented x3, gait normal and no focal motor deficits Results Reviewed Results Reviewed: Laboratory Tests 04/30/25 14:02 Creatinine 0.96 Estimated GFR > 60 Fasting Glucose 91 Triglycerides 275 H Cholesterol 245 H LDL Cholesterol, Calc 145 H HDL Cholesterol 45 Coding Level of Care Code Est Pt Level 4 (85407) Complex EM visit Add On G2211 Diagnoses Chronic bilateral low back pain with bilateral sciatica M54.42; M54.41; G89.29 Back pain laterality: bilateral FLO on CPAP G47.33 HTN (hypertension) I10 Dyslipidemia E78.5 Prediabetes R73.03 Major depressive disorder, recurrent episode, mild F33.0 Concentration deficit R41.840 Severe obesity (BMI 35.0-35.9 with comorbidity) E66.01; Z68.35 Assessment & Plan Assessment & Plan (1) Chronic low back pain with bilateral sciatica: Code(s): M54.41 - Lumbago with sciatica, right side; M54.42 - Lumbago with sciatica, left side; G89.29 - Other chronic pain Category: Medical Qualifiers: Back pain laterality: bilateral Qualified Code(s): M54.42 - Lumbago with sciatica, left side; M54.41 - Lumbago with sciatica, right side; G89.29 - Other chronic pain Plan: will add gabapetin at bedtime, has tolerated this in the past continue tramadol and cymbalta (2) FLO on CPAP: Code(s): G47.33 - Obstructive sleep apnea (adult) (pediatric) Category: Medical Plan: advised to use cpap as directed (3) HTN (hypertension): Code(s): I10 - Essential (primary) hypertension Category: Medical Plan: wnl continue current plan (4) Dyslipidemia: Code(s): E78.5 - Hyperlipidemia, unspecified Category: Medical Plan: if still elevated will start statin (5) Prediabetes: Code(s): R73.03 - Prediabetes Category: Medical Plan: a1c ordered (6) Major depressive disorder, recurrent episode, mild: Code(s): F33.0 - Major depressive disorder, recurrent, mild Category: Medical Plan: following with therapist and psychiatrist on (7) Concentration deficit: Code(s): R41.840 - Attention and concentration deficit Category: Medical Plan: as above advised to use cpap as directed has neuropsych testing 08/05 (8) Severe obesity (BMI 35.0-35.9 with comorbidity): Code(s): E66.01 - Morbid (severe) obesity due to excess calories; Z68.35 - Body mass index [BMI] 35.0-35.9, adult Category: Medical Plan: will increase zepbound to 7.5 mg advised diet changes encouraged weight loss Plan labs ordered advised to complete Medications: New gabapentin 300 mg PO BEDTIME 90 caps 0RF tirzepatide (weight loss) (Zepbound) 7.5 mg (0.5 mL) subcut QWEEK 2 mL 3RF Discontinued tirzepatide (weight loss) (Zepbound) Discontinued Reason: Doctor's Order 5 mg (0.5 mL) subcut QWEEK 2 mL 0RF
[2025-07-30 08:53] VITALS: BP 116/74; PULSE 79; RESP 16; TEMP 35.5; BMI 38.1
--- OUTSIDE RECORDS SUMMARY | 2025-07-30 09:04 | XMS_ITS | Patient Health Record ---
Author Organization [facility] Address [address] [address] Care Team Providers Care Cosmetology Instructor Name Role Phone Mckenzie Luz Primary Care Provider Unavailabl e BEN MORGAN Unavailable [phone] Allergies No Known Allergies Reason For Referral Reason B/L feet pain Diagnosis 1 Right foot pain (M79 .671) Diagnosis 2 Left foot pain (M79. 672) Diagnosis 3 Gastrocnemius equinu s of right lower extremity (M62.461) Diagnosis 4 Gastrocnemius equinu s of left lower extremity (M62.462) Referring Provider First Name Mckenzie Referring Provider Last Name Natty Referred Organization [facility] Referred Provider BEN MORGAN Referred Address [address] [place] [id number], Referred Provider Specialty Podiatry Referral Priority Routine Reason B/L feet pain Diagnosis 1 Left foot pain (M79. 672) Diagnosis 2 Right foot pain (M79 .671) Referring Provider First Name Mckenzie Referring Provider Last Name Natty Referred Organization [facility] Referred Provider BEN MORGAN Referred Address [address] [place] [id number], Referred Provider Specialty Podiatry Referral Priority Routine [...] Problem Tightness of right gastrocnemius muscle (finding) ([id number]) Gastrocnemius equinus of right lower extremity (M62.461) Active confirmed Problem Spasm ([id number]) Gastrocnemius equinus of left lower extremity (M62.462) Active confirmed Plan Of Treatment No Information Insurance Providers Payer Name Payer Address Payer Phone Subscriber Number Group Number Insured Name Patient Relationship to Insured Coverage Start Date Coverage End Date [facility] [address] [address] [place] [address] [id number] Marco Alcantara Self - patient is the insured Medical (General) History Medical History History ICD Code Hyperlipidemia hypertension osteoarthritis of right knee Covid-19 2019 Benign Prostate Hyperplasia Obesity Anxiety Chronic pain Surgical History Surgery Date(Month/Year) colonoscopy 2016 ACL repair Partial knee surgery 2019
--- OUTSIDE RECORDS SUMMARY | 2025-07-30 09:04 | XMS_ITS ---
Care Plan Created on: July 30, 2025 Marco Alcantara : 1965 Sex: Male Author Organization [facility] Address [address] [place] [id number] Care Team Providers Care Prototype Model Maker Name Role Phone Pcp, No Primary Care Provider Anel Thomason LCSW Unavailable Marco Herrera MD Unavailable [phone] Marco Correa MD Unavailable [phone] Active Problems * This document contains information received from the source organization and may not represent a complete record from that organization. Problem Noted Date Diagnosed Date Attention deficit hyperactiv ity disorder (ADHD), predominantly inattentive type 03/10/2021 Additional Health Concerns Active Problems Noted Date Diagnosed Date MCMO-Vqycqthde-Sffphky/Hyperactivity Disorder (A DHD) 03/10/2021 Goals Goal Patient [...] Care Plan PTDO-Attention- Deficit/Hyperac tivity Disorder (ADHD) Anel Saunders LCSW Note: Pt. will report at least [...]
--- OUTSIDE RECORDS SUMMARY | 2025-07-30 09:04 | XMS_ITS | Encounter Summary ---
Author Organization [facility] Address [address] [place] [address] Care Team Providers Care Career Services Officer Name Role Phone Pcp, No Primary Care Provider Anel Thomason LCSW Unavailable Marco Herrera MD Unavailable [phone] Marco Correa MD Unavailable [phone] Encounter Details Date Type Department Care Team (Late st Contact Info) Description 09/08/2021 Erroneous Encounter [facility] [address] [facility] [place] [address] Jaun Asif Jr., MD [address] [place] [address] Social History Tobacco Use Types Packs/Day Years [...] Concerns Active Problems Noted Date Diagnosed Date MLRW-Rsnzgeyqm-Lyylekd/Hyperactivity Disorder (A DHD) 03/10/2021 documented as of this encounter Care Teams Career Services Officer Relationship Specialty Start Date End Date Pcp, No PCP - General General Medicine 02/11/21 Anel Orozco LCSW Glass Lined Tank Repairer Social Work 03/10/21 Marco Conroy MD [address] [place] [address] Psychiatry, General 03/15/21 Marco Correa MD [address] [place] [address] Psychiatry, General 04/22/21 documented as of this encounter
--- OUTSIDE RECORDS SUMMARY | 2025-07-30 09:04 | XMS_ITS | Clinical Summary ---
Author Organization [facility] Address [address] [place] [address] Care Team Providers Care Motor Vehicle Assembler Name Role Phone Pcp, No Primary Care Provider Anel Thomason LCSW Unavailable Marco Herrera MD Unavailable [phone] Marco Correa MD Unavailable [phone] Allergies No known active allergies Medications [...] Concerns Active Problems Noted Date Diagnosed Date ABYM-Hmdedwkrc-Gbiuqqk/Hyperactivity Disorder (A DHD) 03/10/2021 Insurance [facility] Care Teams Motor Vehicle Assembler Relationship Specialty Start Date End Date Pcp, No PCP - General General Medicine 02/11/21 Anel Orozco LCSW Infection Control Practitioner Social Work 03/10/21 Marco Conroy MD [address] [place] [address] Psychiatry, General 03/15/21 Marco Correa MD [address] [place], [place] [address] Psychiatry, General 04/22/21
== END 2025-07-30 09:29 | disposition home or self-care (01) ==
LOC: HO.HMCFM 08:41
PROVIDERS: PCP Physician Assistant; Visit Provider Physician Assistant
DX: M54.42 Lumbago with sciatica, left side (principal); M54.41 Lumbago with sciatica, right side; E66.01 Morbid (severe) obesity due to excess calories; Z68.35 Body mass index [BMI] 35.0-35.9, adult; G89.29 Other chronic pain; G47.33 Obstructive sleep apnea (adult) (pediatric); I10 Essential (primary) hypertension; E78.5 Hyperlipidemia, unspecified; R73.03 Prediabetes; F33.0 Major depressive disorder, recurrent, mild; R41.840 Attention and concentration deficit

== ENCOUNTER → 2025-07-30 08:40 | Outpatient (BNVA) | payer OTHER, SELFPAY | PROVIDERS: PCP Physician Assistant; Visit Provider Physician Assistant | DX: I10 Essential (primary) hypertension (principal); F41.9 Anxiety disorder, unspecified; E66.9 Obesity, unspecified; G89.29 Other chronic pain; M54.42 Lumbago with sciatica, left side; M54.41 Lumbago with sciatica, right side; G47.33 Obstructive sleep apnea (adult) (pediatric); E78.5 Hyperlipidemia, unspecified; R73.03 Prediabetes; F33.0 Major depressive disorder, recurrent, mild; R41.840 Attention and concentration deficit; E66.01 Morbid (severe) obesity due to excess calories; Z68.35 Body mass index [BMI] 35.0-35.9, adult; Z86.718 Personal history of other venous thrombosis and embolism; Z79.891 Long term (current) use of opiate analgesic | CPT/HCPCS: 99212 ==

== ENCOUNTER 2025-08-05 12:53 | Outpatient (RCR) | payer OTHER, SELFPAY ==
--- NOTE | 2025-08-19 15:19 | MHC.SP.ADU ---
Addendum entered by Nurys Garcia MA, CCC-TUFTING SUPERVISOR 08/28/25 16:48: Marco Alcantara is a 60 year old man who was referred by his neurologist for a speech/cognitive assessment to determine goals for cognitive therapy. Brendon was accompanied by his sister, who helped with additional background information and concerns. Brendon identified loss of brain as a concern, however in the interview he reported difficult with memory, attention and organizing his thoughts as primary areas of concern. During the interview, its was a times difficulty to get concise information from Brendon, as he tended to jump from topic to topic and was quite verbose, but also very pleasant and amiable. Brendon reported that he had learning difficulties during his education, and was put in the back of the class, and went to vocational school for his high school years. 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 However he notes that his cognitive difficulties have been escalating over the past four years. Brendon reported that at some point he was in the ICU for a period due to pneumonia, which he attributes as a possible reason for his change in function. His sister further notes family concerns that Brendon is having difficulty keeping track of his appointments, finances, medication and other essential daily management and memory tasks. Brendon reports that he has recently been seen by a behavioral psychologist who diagnosed him with ADHD. Brendon is also in the process of applying for Disability due to his impairment affecting his ability to maintain work, which is a process he is finding daunting. Brendon reports that he is currently living in a home in [place]. Original Note: Referring provider: Dr. Brooks Reason for Referral: Speech/Cognitive Assessment Type of Treatment: 02265 Standardized Cognitive Performance Testing, per hour Date of Plan of Treatment: 08/05/25 Onset of Symptoms/Illness: 04/30/25 Date Treatment Started: 08/05/25 Medical Diagnosis: Other symptoms and signs involving cognitive functions and awareness; Attention and concentration deficit. Primary Speech Language Diagnosis: R41.840 Attention and concentration deficit Secondary Speech Language Diagnosis: I69.911 Memory deficit History Marco Alcantara is a 60 year old man who was referred by his neurologist for a speech/cognitive assessment to determine goals for cognitive therapy. Brendon was accompanied by his sister, who helped with additional background information and concerns. Brendon identified loss of brain as a concern, however in the interview he reported difficult with memory, attention and organizing his thoughts as primary areas of concern. During the interview, its was a times difficulty to get concise information from Brendon, as he tended to jump from topic to topic and was quite verbose, but also very pleasant and amiable. Brendon reported that he had learning difficulties during his education, and was put in the back of the class, and went to vocational school for his high school years. 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 However he notes that his cognitive difficulties have been escalating over the past four years. Brendon reported that at some point he was in the ICU for a period due to pneumonia, which he attributes as a possible reason for his change in function. His sister further notes family concerns that Brendon is having difficulty keeping track of his appointments, finances, medication and other essential daily management and memory tasks. Brendon reports that he has recently been seen by a behavioral psychologist who diagnosed him with ADHD. Brendon is also in the process of applying for Disability due to his impairment affecting his ability to maintain work, which is a process he is finding daunting. Brendon reports that he is currently living in a private condominium in [place]. Medical History: FLO Right leg DVT Medication List: Please see chart. Recent Hospitalizations: No Respiratory Needs: Room Air Patient Orientation: Alert & Oriented x 4 Social History: Employment Status: Unemployed Highest level of education obtained: Completed High School/GED Current Living Situation: Lives alone in a private condominium. Reported Speech, Language, Cognition difficulties: Understanding, Attention, Memory Comments: Brendon expresses concerns about memory, attention and general comprehension/self monitoring. Quality of Life: Good Patient Stated Goal of Speech-Language Therapy: Assess for intervention (cognitive therapy) Assessment Tests of Cognition: RBANS Clinical Impression: Impaired Observations: The Repeatable Battery for the Assessment of Neuropsychological Status (RBANS) was used as a screening instrument to briefly assess Brendon?s cognitive skills. The RBANS-(Updated Form A) briefly assesses aspects of cognitive memory, language, and attention skills. The RBANS is considered a screening battery for cognitive function and is repeatable for the purpose of evaluating any changes in function. It is intended for use with adolescents and adults, ages 12 to 89 years. Composite domains assessed in this test are: Immediate Memory, Visuospatial/Constructional, Language, Attention, and Delayed Memory. Interpretation of test performance is based on normative data on individuals between ages 60-69. Brendon?s performance is summarized below: IMMEDIATE MEMORY: This domain assesses the individual's ability to remember information immediately after it is presented. For the ?List Learning? task, Brendon was read a list of 10 words and asked to repeat back as many words as he could. He was then read the same list four times. On this test Brendon initially recalled two words at the beginning of the list and two words at the end of the list. On subsequent trials, he was able to add a word or two, again to either the beginning or end of the list, but could not recall any of the words in the middle. He could not think of a strategy he used when asked. His score on this subtest fell in the below average range. On the ?Story Memory? task, a brief story is read by the examiner two times, with the subject required to repeat back as much as they remember each time. Brendon remembered half of the important details each time he was read the story, with some mild variation between the two readings. The score on this subtests also fell in the below average range. Both scores, cumulatively on the composite score for Immediate Memory were below average, indicating an area of significant struggle for Brendon. List Learning Total Score: 20 Scaled Score: 4 Interpretation: Below Average Story Memory Total Score: 12 Scaled Score: 5 Interpretation: Below Average Immediate Memory Index Score: 60 Percentile: 2 Interpretation: Below Average VISUOSPATIAL/CONSTRUCTIONAL: This domain assesses the individual's ability to perceive spatial relations and to construct a spatially accurate copy of a drawing. During the Figure Copy task, Brendon was given an example of a specific figure to copy onto a piece of paper. Individuals are scored on both the drawing accuracy and placement of 10 different target items. Brendon?s drawing included all of the elements of the drawing with one self correction, demonstrating an above average score. Brendon then made a good effort, and had a few mild errors on the Line Orientation task, in which an individual is asked to transpose two line segments of an angle to a compass diagram above it,in order to label each segment. Vilma score on this subtest fell in the low average range. These scores combined for the visuospatial/constructional domain, resulted in a solidly average score overall. Figure Copy Total Score: 20 Scaled Score: 14 Interpretation: Above Average Line Orientation Total Score: 15 Percentile Group: 25-50 Interpretation: Low Average Visuospatial/Constructional Index Score: 105 Percentile: 63 Interpretation: Average LANGUAGE: This domain assesses the individual's ability to respond verbally to either naming or retrieving learned material. Brendon was asked to label various line drawings in a responsive naming task and then asked to name as many fruits and vegetables as he could in one minute in a Semantic Fluency task. Brendon accurately and rapidly named 10 out of 10 drawings, demonstrating a high average score, Brendon labeled 14 fruits and vegetables in one minute, demonstrating a low average score on this subtest. Scores combined resulted in an average score for the Language Domain. Picture Naming Total Score: 10 Percentile Group: 51-75 Interpretation: High average Semantic Fluency Total Score: 14 Scaled Score: 7 Interpretation: Low Average Language Index Score: 92 Percentile: 30 Interpretation: Average ATTENTION: This domain assesses the individual's capacity to remember and manipulate both visually and orally presented information in short-term memory storage Brendon was read aloud strings of numbers of varying lengths then asked to recall the numbers. Brendon struggled to accurately recall numbers beyond three in a sequence, making reversals in order initially, then making substitutions as the length of the sequence grew. He demonstrated a below average score. In the coding subtest, Brendon was asked to write numbers to their matching symbols as quickly and efficiently as possible within 90 seconds. Brendon worked slowly through this task, and made some errors in the form of reversals with his score falling in the below average range. For the overall ?Attention? domain score, Brendon fell in the below average range for his age group. Digit Span Total Score: 8 Scaled Score: 5 Interpretation: Below Average Coding Total Score: 26 Scaled Score: 4 Interpretation: Below Average Attention Index Score: 69 Percentile: 2 Interpretation: Below Average DELAYED MEMORY: This domain assesses the individual's anterograde memory capacity. Low scores indicate difficulties with recognition and retrieval of information from long-term memory stores. On most of these tests, Brendon struggled to recall the information from earlier presented items. Brendon was initially able to recall 2 of the words on the wordlist that was presented to him earlier in the testing, demonstrating a below average score on this task. When given a recognition task regarding words on the list (i.e. ?Was apple on the list??) Brendon was able to identify some of the items from the list, but fewer than anticipated when given this level of cuing, with his score falling in the below average range. On recalling the story that was read to him at the beginning of the assessment, Brendon was able to recall the same number of items when this was originally presented, however this was still a reduced amount from what was expected, with his score falling in the below average range. Finally, when asked to recall the figure he dolores with relatively good accuracy at the beginning of the test, Brendon was able to recall some of the basic elements of the drawing, but omitted several items and placed others in the wrong location, which resulted in a low average score on this subtest. Brendon?s score for delayed recall of information to the below average range. List Recall Total Score: 2 Percentile Group: 3-9 Interpretation: Below Average List Recognition Total Score: 18 Percentile Group: 10-16 Interpretation: Below Average Story Recall Total Score: 6 Scaled Score: 3 Interpretation: Below Average Figure Recall Total Score: 8 Scaled Score: 6 Interpretation: Below Average Delayed Memory Index Score: 78 Percentile: 6 Interpretation: Below Average The Total Test Score on the RBANS represents a summation of the individual index scores across five cognitive domains, providing an overall measure of a person's cognitive functioning, with a higher score indicating better cognitive performance; a mean score of 100 is considered average, and a standard deviation of 15 is used to interpret the severity of any cognitive impairment based on the individual's score relative to the norm. On the total test, Brendon demonstrated a below average score overall. TOTAL TEST: Sum of Index Scores: 462 Total Scale Score: 80 Percentile: 9 Interpretation: Below Average Summary/Conclusions: Brendon presented today with a scatter of scores ranging from average in the visual/constructual domain and low average in Language, to below average on immediate recall of semantic information, attention and remote recall of information. Brendon demonstrated limited ?strategies? in attempts to remember and recall information, and struggled with sequencing and attending to longer verbal information. He does have a previous history of ADHD and Dyslexia which likely had an impact on his function on this test, though he generally focused and attended well throughout the evaluation. Impressions and Recommendations Summary: Brendon presented today with a moderate cognitive impairment, primarily in the areas of auditory memory, attention and remote recall of information. Brendon had a scatter of scores on testing, ranging from average in the visual/constructional domain and low average in Language, to below average on immediate recall of semantic information, attention and remote recall of information. Brendon demonstrated limited ?strategies? in attempts to remember and recall information, and struggled with sequencing and attending to longer verbal information. Brendon would benefit from some further testing to assess his general language processing skills and language organizational skills, as in his conversational speech he demonstrated rapid topic shifting. Further testing can be conducted as a part of therapy. It is recommended that Brendon return for a period of cognitive therapy, to learn strategies and develop functional goals to assist him in his daily activities (e.g. managing bills, tracking appointments). Impact on Daily Function/Activity Limitations: Daily Activities: Moderate Interpersonal Interactions: Moderate Education: n/a Employment: Moderate Community: Moderate Prognosis for Improvement: Good Recommendation for Speech Therapy: Outpatient Speech Therapy Frequency/Duration: One forty five minute session weekly. Date Range for Service Requested: 8-10 weeks Time to Reassess: PRN Custodial Goals: Brendon will apply strategies, applications and accommodations to manage tasks that require immediate recall and processing in four out of five contexts. Short Term Goals: Goal # : 1. Brendon will complete standardized and non standardized assessment to evaluate his language processing and language organizational skills in 1-2 sessions. Goal Status: Goal# : 2.1 Brendon will use a rehearsal strategy to recall a detail or specific information from visual or verbal presented information with 80% accuracy 2.2 Brendon will use an association strategy to retain and retrieve specific information from visually or verbally presented information with 80% accuracy. 2.3 Brendon will use an visualization strategy to retain and retrieve specific information from visually or verbally presented information with 80% accuracy. Goal Status: Goal # : 3.1 Brendon will electively use an corona or tech device to record and retrieve needed information in four out of five contexts. Goal Status: Goal # : Goal Status: Recommended Referrals to be Discussed with Primary Care Provider: Patient Education: Completed: Yes Patient/Caregiver Education: Described Results of Evaluation Patient expressed understanding of evaluation Patient agrees with goals and treatment plan Comments/Barriers to Learning: Master [employer] Clinican/Clinical Fellow: No Supervisory Statement: N/A Speech Language Pathologist: Merced Garcia M.A., CCC-TUFTING SUPERVISOR
== END 2025-08-25 14:30 | disposition still patient (30) ==
LOC: HO.SH 12:53
PROVIDERS: PCP Physician Assistant; Visit Provider Psychiatry & Neurology Neurology
DX: R41.89 Other symptoms and signs involving cognitive functions and awareness (principal); R41.840 Attention and concentration deficit
CPT/HCPCS: 96125

== ENCOUNTER 2025-09-17 12:56 | Outpatient (AMB) | payer OTHER, SELFPAY ==
--- NOTE | 2025-09-17 12:59 | MHC.PC.OV ---
Vital Signs 09/17/25 13:07 09/17/25 13:19 Height 5 ft 5 in Weight 228 lb 2 oz BMI 38.0 BP 152/87 H 122/74 Blood Pressure Location Lt brachial Lt brachial Position Sitting Sitting Respiration 16 Pulse 77 Pulse Source Pulse Oximeter Temp 97.8 F Temp Source Oral Pulse Oximetry (%) 99 Oxygen Delivery Method Room Air Intake Visit Reasons: GI referral request Intake Note: GI referral. Upper chest indigestion. Taking tums twice a day and its not helping. Orthopedics referral for bilateral leg pain and ankel pain. Neuropscyhology test for memory issue, and referral to a specialist for ADHD. Nurse navigator referral. Ip Litigation Paralegal Required: No Allergies No Known Allergies Allergy (Verified 07/30/25 08:51) Medication List - Last Reconciled 09/17/25 by Carina Lerma PA-C bupropion HCl (Wellbutrin SR) PO celecoxib (Celebrex) 200 mg PO BID PRN 30 days divalproex ER (Depakote ER) 500 mg PO DAILY duloxetine 60 mg PO BID gabapentin 300 mg PO BEDTIME lisinopril-hydrochlorothiazide 20-12.5 mg 1 tab PO DAILY tamsulosin 0.4 mg PO BEDTIME 30 days tirzepatide (Mounjaro) 5 mg (0.5 mL) subcut QWEEK tramadol 100 mg (2 x 50 mg) PO BID PRN 28 days Tobacco use date assessed: 09/17/25 Dental Screening Dental Screen Date: 11/26/24 HPI GI referral request HPI Details Patient is a 60-year-old male who presents today for an acute problem visit regarding a GI referral.. He has a significant past medical history of hypertension, anxiety and depression, obesity, chronic pain, osteoarthritis, hx of DVT (2022). CV: He states that he has been having some chest pain. He thinks it is related to indigestion as it was relieved with TUMS. He stopped drinking soda water and that has helped. He would like a referral to GI for this. The pain is mostly in the epigastric and center of his chest. It does not radiate. No sob or dizziness. He He is on lisinopril/hydrochlorothiazide 20/12.5 mg. He does have high cholesterol in his not yet on any statin because he has not wanted to at this point but is open to this if cholesterol remains elevated. GI: He states when he swallows he sometimes feels like he gets food stuck. He did not think much of it until the recent heartburn sensation. He says that this has been going on for the last couple years. Musculoskeletal: arthritis is managed with tramadol 100 mg bid and is on 60 mg b.i.d. of duloxetine x 3 years. -he is following with pain management and states he missed his pt appointment but called today to get an appointment. Endo: His insurance covered mounjaro 2.5 mg weekly for his prediabetes. Psych: He has neuropsych booked 08/05. He is seeing psych 08/25. He is following now with [facility]. On Cymbalta 60 mg twice a day. He has a hard time with concentration. His sister states that she thinks he has some impaired judgment decisions. 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 -In the past tried trazodone and woke up feeling altered and cordero. He struggles falling asleep at times. States that he will take Benadryl Uro: has tried flomax. He was referred to urology. Colonoscopy: 2018, states due in 2027 PSA: UTD- states manages through urology He states he goes to for alcohol abuse and states in his 20s used cocaine. No fam hx of cancer [facility] Medical History FLO on CPAP Impulsiveness Right leg DVT Surgical History S/P ACL reconstruction Family History Family/Other Alcoholic Mother Edema Other Chronic mental illness Substance abuse Social History (Updated 07/30/25 @ 08:57 by Martita Enrique CMA) Housing: House Alcohol intake: former Comment: quit 30 plus years ago Patient Tobacco Use Status: Former Tobacco user Tobacco use type: Cigarette Years Smoked: unknown e-Cigarette/Vaping Use: Never Used Second Hand Smoke Exposure: No Substance Use Type: Marijuana service: No Current occupational status: unemployed Cognitive needs: Yes (Trouble remembering ) Hearing needs: No Vision needs: No Questionnaire Thrive Questionnaire Date Thrive assessed: 11/26/24 I am a: Patient What is your living situation today?: I have a steady place to live Within the past 12 months, did the food you bought not last and you didn't have the money to get more?: Never true Within the past 12 months, did you worry whether your food would run out before you got money to buy more?: Never true Do you have trouble paying for medicines?: No Do you have trouble getting transportation to medical appointments?: No Do you have trouble paying your heating and electricity bill?: Yes Do you have trouble taking care of your child, family member or friend?: No Do you have trouble with day-to-day activities such as bathing, preparing meals, shopping, managing finances, etc.?: No Are you currently unemployed and looking for a job?: Yes Are you interested in more education?: No Currently or been in a relationship where the following occur: I choose not to answer THRIVE Score: 1 ESTEE-7 AMB Questionnaire ESTEE-7 Date ESTEE - 7 assessed: 11/26/24 Source: Developed by Drs. Kd Noble, Claudia Geiger, Desmond Bonilla and colleagues, with an educational teddy from [employer]. Physical exam (Primary Care) Vital Signs: Last Vital Signs Temp 97.8 F 09/17/25 13:07 Pulse 77 09/17/25 13:07 Resp 16 09/17/25 13:07 BP 122/74 09/17/25 13:19 Pulse Ox 99 09/17/25 13:07 Oxygen Delivery Method Room Air 09/17/25 13:07 BMI result Body Mass Index 38.0 Tobacco/Smoking Status: Tobacco use Status Tobacco use date assessed 09/17/25 09/17/25 13:13 Patient Tobacco Use Status Former Tobacco user 09/17/25 13:02 Tobacco use type Cigarette 09/17/25 13:02 e-Cigarette/Vaping Use Never Used 09/17/25 13:02 Thrive Assessment: Date of Thrive Assessment Date Thrive assessed 11/26/24 09/17/25 13:02 Currently or been in a relationship where the following occur: I choose not to answer Const Orientation/consciousness: patient oriented x3 HENMT Ears: hearing grossly normal bilaterally Neck Thyroid: Thyroid normal Lymphatic: no lymphadenopathy noted Resp Auscultation: clear to auscultation bilaterally Cardio Rate: regular rate Rhythm: regular rhythm Heart sounds: S1 normal heart sound present and S2 normal heart sound present GI Inspection: Yes normal to inspection Palpation (GI): Soft to palpation and Other GI palpation findings present (nontender, no cva tenderness) Auscultation: normoactive bowel sounds Rectal Exam - Male: Yes deferred Skin General skin exam: no rashes or lesions noted Neuro General: patient oriented x3, gait normal and no focal motor deficits Office Procedures EKG Details: EKG today in office is normal sinus rhythm at a rate of 84 beats per minute with nonspecific STT wave abnormalities. No prior study to compare. EKG interpreted myself and Dr. Melvin. [id number], Complete Results Reviewed Results Reviewed: Laboratory Tests 04/30/25 14:02 WBC 10.3 RBC 5.48 Hgb 15.2 Hct 46.3 Plt Count 333 Creatinine 0.96 Estimated GFR > 60 Fasting Glucose 91 Hemoglobin A1c % 5.9 Triglycerides 275 H Cholesterol 245 H LDL Cholesterol, Calc 145 H HDL Cholesterol 45 Coding Level of Care Code Est Pt Level 4 (35413) Diagnoses HTN (hypertension) I10 Dyslipidemia E78.5 Prediabetes R73.03 Dysphagia R13.10 Atypical chest pain R07.89 CPT Codes EKG - CPT: [id number], Complete ([id number]) Assessment & Plan Assessment & Plan (1) HTN (hypertension): Code(s): I10 - Essential (primary) hypertension Category: Medical Plan: wnl continue current plan (2) Dyslipidemia: Code(s): E78.5 - Hyperlipidemia, unspecified Category: Medical Plan: if still elevated will start statin (3) Prediabetes: Code(s): R73.03 - Prediabetes Category: Medical Plan: a1c ordered. increase mounjaro to 5 mg weekly (4) Dysphagia: Code(s): R13.10 - Dysphagia, unspecified Category: Medical Plan: swallow study ordered referral to gi (5) Atypical chest pain: Code(s): R07.89 - Other chest pain Category: Medical Plan: ekg today stress test ordered chest xray Plan labs ordered advised to complete Orders: Orders FL barium swallow 09/17/25 Carina Lerma PA-C R07.89 - Other chest pain, R13.10 - Dysphagia, unspecified AMB EKG-In Office 09/17/25 Carina Lerma PA-C E66.01 - Morbid (severe) obesity due to excess calories, I10 - Essential (primary) hypertension, R07.89 - Other chest pain, R73.03 - Prediabetes, Z68.35 - Body mass index [BMI] 35.0-35.9, adult CA stress test 09/17/25 Carina Lerma PA-C E66.01 - Morbid (severe) obesity due to excess calories, I10 - Essential (primary) hypertension, R07.89 - Other chest pain, R73.03 - Prediabetes, Z68.35 - Body mass index [BMI] 35.0-35.9, adult Hemoglobin A1c 09/17/25 Carina Lerma PA-C I10 - Essential (primary) hypertension, R13.10 - Dysphagia, unspecified, R73.01 - Impaired fasting glucose, R73.03 - Prediabetes Lipid Panel 09/17/25 Carina Lerma PA-C I10 - Essential (primary) hypertension, R13.10 - Dysphagia, unspecified, R73.03 - Prediabetes Comprehensive Met. Panel 09/17/25 Carina Lerma PA-C I10 - Essential (primary) hypertension, R13.10 - Dysphagia, unspecified, R73.03 - Prediabetes Complete Blood Count Auto Diff 09/17/25 Carina Lerma PA-C I10 - Essential (primary) hypertension, R13.10 - Dysphagia, unspecified, R73.03 - Prediabetes TSH reflex Free T4 09/17/25 Carina Lerma PA-C I10 - Essential (primary) hypertension, R13.10 - Dysphagia, unspecified, R73.03 - Prediabetes XR chest 2V 09/17/25 Carina Lerma PA-C R07.89 - Other chest pain Referrals Gastroenterology Referral Carina Lerma PA-C R07.89 - Other chest pain, R73.03 - Prediabetes Medications: New tirzepatide (Mounjaro) 5 mg (0.5 mL) subcut QWEEK 2 mL 3RF Carina Lerma PA-C Changed From divalproex ER (Depakote ER) 500 mg PO BID 60 tabs 6RF To divalproex ER (Depakote ER) 500 mg PO DAILY Faith Brooks MD Discontinued tirzepatide (Mounjaro) Discontinued Reason: Doctor's Order 2.5 mg (0.5 mL) subcut QWEEK 2 mL 2RF R73.03 - Prediabetes
[2025-09-17 13:07] VITALS: BP 152/87; PULSE 77; RESP 16; TEMP 36.6; O2SAT 99; BMI 38.0
[2025-09-17 13:19] VITALS: BP 122/74
--- OUTSIDE RECORDS SUMMARY | 2025-09-17 18:35 | XMS_ITS ---
Care Plan Created on: September 17, 2025 Marco Alcantara : 1965 Sex: Male Author Organization [facility] Address [address] [place] [id number] Care Team Providers Care Instrumentation Tech Name Role Phone Pcp, No Primary Care Provider Anel Thomason LCSW Unavailable Marco Herrera MD Unavailable [phone] Marco Correa MD Unavailable [phone] Active Problems * This document contains information received from the source organization and may not represent a complete record from that organization. Problem Noted Date Diagnosed Date Attention deficit hyperactiv ity disorder (ADHD), predominantly inattentive type 03/10/2021 Additional Health Concerns Active Problems Noted Date Diagnosed Date LKNF-Lsrynqnle-Tqvrkdn/Hyperactivity Disorder (A DHD) 03/10/2021 Goals Goal Patient [...]
--- OUTSIDE RECORDS SUMMARY | 2025-09-17 18:35 | XMS_ITS | Clinical Summary ---
Author Organization [facility] Address [address] [place] [id number] Care Team Providers Care Senior Informatica Developer Name Role Phone Pcp, No Primary Care Provider Anel Thomason LCSW Unavailable Marco Herrera MD Unavailable [phone] Marco Correa MD Unavailable Allergies No known active allergies Medications * [...] season) 2025 11/20/2021, 03/04/2021, 02/11/2021 RSV Vaccine 50 years and older and Patients (1 - [...] Concerns Active Problems Noted Date Diagnosed Date BVXK-Cdtjypmba-Ozenaok/Hyperactivity Disorder (A DHD) 03/10/2021 Insurance [facility] Care Teams Senior Informatica Developer Relationship Specialty Start Date End Date Pcp, No PCP - General General Medicine 02/11/21 Anel Orozco LCSW [employer] Social Work 03/10/21 Marco Conroy MD [address] [place] [address] Psychiatry, General 03/15/21 Marco Correa MD [address] [place], [place] [id number] Psychiatry, General 04/22/21
== END 2025-09-17 13:48 | disposition home or self-care (01) ==
LOC: HO.HMCFM 12:57
PROVIDERS: PCP Physician Assistant; Visit Provider Physician Assistant
DX: I10 Essential (primary) hypertension (principal); E78.5 Hyperlipidemia, unspecified; R73.03 Prediabetes; R13.10 Dysphagia, unspecified; R07.89 Other chest pain

== ENCOUNTER → 2025-09-17 12:56 | Outpatient (BNVA) | payer OTHER, SELFPAY | PROVIDERS: PCP Physician Assistant; Visit Provider Physician Assistant | DX: I10 Essential (primary) hypertension (principal); R13.10 Dysphagia, unspecified; R07.89 Other chest pain; E78.5 Hyperlipidemia, unspecified; R73.03 Prediabetes | CPT/HCPCS: 93005; 99212 ==